=== PATIENT | male | born 1985 | race Caucasian/White ===

== ENCOUNTER 2024-01-09 21:42 | Inpatient (IN) | payer MEDICAID, OTHER ==
[~2024-01-09] VITALS: Ht 182.9 cm; Wt 112.5 kg
[2024-01-09 23:07] LABS: Eosinophils # (auto) 0.1 10 ^3/uL (0-0.8); Eosinophils % (auto) 0.6 % (0.0-7.0); Lymphocytes # (auto) 1.5 10 ^3/uL (0.4-5.4)
[2024-01-09 23:09] LABS: Basophils # (auto) 0.1 10 ^3/uL (0-0.2); Basophils % (auto) 0.5 % (0.0-2.0); Hematocrit 35.3 % (41.0-53.0); Hemoglobin 11.3 g/dL (13.5-17.5); Lymphocytes % (auto) 12.4 % (10.0-50.0); Mean Corpuscular Hemoglobin 24.1 pg (28.0-32.0); Mean Corpuscular Hgb Conc. 31.9 g/dL (32.0-36.0); Mean Corpuscular Volume 75.7 fL (80.0-100.0); Monocytes # (auto) 1.4 10 ^3/uL (0-1.3); Monocytes % (auto) 11.9 % (0.0-12.0); Neutrophils % (auto) 74.6 % (37.0-80.0); Red Blood Cells 4.67 10^6/uL (4.5-5.90); Red Cell Distribution Width 16.4 % (11.8-14.3)
[2024-01-09 23:29] LABS: Alanine Aminotransferase 22 U/L (7-40); Albumin 3.7 g/dL (3.2-4.8); Alkaline Phosphatase 143 U/L (46-116); Anion Gap 2 (5-15); Aspartate Aminotransferase 16 U/L (13-40); BUN/Creatinine Ratio 6.8 (10.0-20.0); Bilirubin, Total 0.5 mg/dL (0.2-1.0); Blood Urea Nitrogen 6 mg/dL (9-23); Calcium 9.5 mg/dL (8.7-10.4); Carbon Dioxide 29 mmol/L (20-30); Chloride 100 mmol/L (98-107); Glucose 98 mg/dL (74-106); Potassium 3.9 mmol/L (3.5-5.1); Sodium 131 mmol/L (136-145); Total Protein 9.1 g/dL (5.7-8.2)
[2024-01-10 00:07] LABS: Erythrocyte Sedimentation Rate 91 mm/hr (0-20)
[2024-01-10] MEDS: CLINDAMYCIN 900MG IV 50 ML IV ONE (04:11)
[2024-01-10] MEDS: VANCOMYCIN 1GM/200ML 200 ML IV ONE (05:09)
[2024-01-10] MEDS ORDERED: DOCUSATE SOD 100 MG CAP PO PRN (05:30)
[2024-01-10] MEDS ORDERED: VANCOMYCIN PER PHARMACY 0 MG IV SCH (05:30)
[2024-01-10] MEDS: SODIUM CHLORIDE 0.9% 1,000 ML IV SCH (05:56)
[2024-01-10] MEDS ORDERED: MORPHINE SULFATE INJ 2 MG/ml SYRG IV PRN (06:30)
[2024-01-10] MEDS ORDERED: NITROGLYCERIN 0.4 MG SL TAB SL PRN (06:30)
[2024-01-10 06:46] LABS: Alanine Aminotransferase 18 U/L (7-40); Albumin 3.6 g/dL (3.2-4.8); Alkaline Phosphatase 135 U/L (46-116); Anion Gap 7 (5-15); Aspartate Aminotransferase 14 U/L (13-40); BUN/Creatinine Ratio 8.8 (10.0-20.0); Bilirubin, Total 0.5 mg/dL (0.2-1.0); Blood Urea Nitrogen 8 mg/dL (9-23); Calcium 9.2 mg/dL (8.7-10.4); Carbon Dioxide 26 mmol/L (20-30); Chloride 99 mmol/L (98-107); Glucose 90 mg/dL (74-106); Potassium 3.8 mmol/L (3.5-5.1); Sodium 132 mmol/L (136-145)
[2024-01-10 06:47] LABS: Total Protein 8.6 g/dL (5.7-8.2)
[2024-01-10 06:48] LABS: Basophils # (auto) 0.1 10 ^3/uL (0-0.2); Eosinophils # (auto) 0.2 10 ^3/uL (0-0.8); Hematocrit 32.2 % (41.0-53.0); Lymphocytes # (auto) 1.7 10 ^3/uL (0.4-5.4); Monocytes # (auto) 1.3 10 ^3/uL (0-1.3)
[2024-01-10 06:50] LABS: Basophils % (auto) 0.6 % (0.0-2.0); Eosinophils % (auto) 1.5 % (0.0-7.0); Hemoglobin 10.5 g/dL (13.5-17.5); Mean Corpuscular Hemoglobin 24.1 pg (28.0-32.0); Mean Corpuscular Hgb Conc. 32.4 g/dL (32.0-36.0); Mean Corpuscular Volume 74.2 fL (80.0-100.0); Monocytes % (auto) 12.8 % (0.0-12.0); Neutrophils # (auto) 6.9 10 ^3/uL (1.6-8.6); Neutrophils % (auto) 68.1 % (37.0-80.0); Red Blood Cells 4.35 10^6/uL (4.5-5.90); Red Cell Distribution Width 16.8 % (11.8-14.3); White Blood Cell 10.1 10^3/uL (4.4-10.8)
[2024-01-10] MEDS: levoFLOXacin 750MG 150 ML IV ONE (07:12)
[2024-01-10] MEDS: ENOXAPARIN SOD 40 MG/0.4 ML SYRINGE SC SCH (11:27)
[2024-01-10] MEDS: VANCOMYCIN 1GM/200ML 200 ML IV SCH (14:17)
[2024-01-10 17:00] VITALS: BP_SYST 108; BP_DIAS 59; BP_DIAS 89; PULSE 81; RESP 16; RESP 20; TEMP 98; TEMP 98.4; O2SAT 95; O2SAT 97
[2024-01-10 20:00] VITALS: BP 112/53; PULSE 89; RESP 18; TEMP 98.9
[2024-01-10 20:06] VITALS: BP 112/53; PULSE 89; RESP 18; TEMP 98.9; O2SAT 95
[2024-01-10] MEDS: IBUPROFEN 600 MG TAB PO PRN (21:50)
[2024-01-10] MEDS: CLINDAMYCIN 600MG IV 50 ML IV SCH (23:52)
[2024-01-11 04:18] LABS: Basophils # (auto) 0.1 10 ^3/uL (0-0.2); Eosinophils # (auto) 0.2 10 ^3/uL (0-0.8); Lymphocytes # (auto) 1.9 10 ^3/uL (0.4-5.4); Lymphocytes % (auto) 23.6 % (10.0-50.0); Neutrophils # (auto) 4.8 10 ^3/uL (1.6-8.6)
[2024-01-11 04:19] LABS: Basophils % (auto) 1.1 % (0.0-2.0); Eosinophils % (auto) 2.5 % (0.0-7.0); Hematocrit 30.1 % (41.0-53.0); Hemoglobin 9.7 g/dL (13.5-17.5); Mean Corpuscular Hemoglobin 24.2 pg (28.0-32.0); Mean Corpuscular Hgb Conc. 32.2 g/dL (32.0-36.0); Mean Corpuscular Volume 75.1 fL (80.0-100.0); Monocytes # (auto) 1.2 10 ^3/uL (0-1.3); Monocytes % (auto) 14.6 % (0.0-12.0); Neutrophils % (auto) 58.2 % (37.0-80.0); Red Blood Cells 4.01 10^6/uL (4.5-5.90); Red Cell Distribution Width 16.7 % (11.8-14.3); White Blood Cell 8.2 10^3/uL (4.4-10.8)
[2024-01-11 04:38] LABS: Alanine Aminotransferase 16 U/L (7-40); Albumin 3.2 g/dL (3.2-4.8); Alkaline Phosphatase 138 U/L (46-116); Anion Gap 3 (5-15); Aspartate Aminotransferase 15 U/L (13-40); BUN/Creatinine Ratio 8.1 (10.0-20.0); Bilirubin, Total 0.3 mg/dL (0.2-1.0); Blood Urea Nitrogen 7 mg/dL (9-23); Calcium 8.7 mg/dL (8.7-10.4); Carbon Dioxide 27 mmol/L (20-30); Chloride 105 mmol/L (98-107); Glucose 85 mg/dL (74-106); Potassium 3.7 mmol/L (3.5-5.1); Sodium 135 mmol/L (136-145); Total Protein 7.7 g/dL (5.7-8.2)
[2024-01-11 05:00] VITALS: BP 114/60; PULSE 75; RESP 16; TEMP 97.1; O2SAT 99
[2024-01-11 07:49] LABS: Amphetamine Screen, Urine Pos (NEGATIVE); Barbiturate Scree,Urine Neg (NEGATIVE); Benzodiazephine Screen, Urine Neg (NEGATIVE); Cannabinoid Screen, Urine Pos (NEGATIVE); Cocaine Screen, Urine Neg (NEGATIVE); Opiate Scree,Urine Neg (NEGATIVE); Phencyclidine Screen, Urine Neg (NEGATIVE)
[2024-01-11 07:54] LABS: Urine Bacteria FEW /hpf (None Seen); Urine Blood Negative /uL (Negative); Urine Clarity Clear (Clear); Urine Color Light-Yellow (Yellow); Urine Mucus FEW (None Seen); Urine Protein, UAD Negative (Negative); Urine Specific Gravity 1.016 (1.001-1.035); Urine Urobilinogen Normal (Negative); Urine WBC <1 /hpf (0 - 3); Urine pH 5.5 (5.0-9.0)
[2024-01-11] MEDS: ONDANSETRON HCL 4 MG/2 ML VIAL IV PRN (08:51)
[2024-01-11 09:29] VITALS: BP 131/67; PULSE 92; RESP 17; TEMP 98.6; O2SAT 98
[2024-01-11] MEDS: ALPRAZolam 0.5 MG TAB PO SCH (12:48)
[2024-01-11 13:24] VITALS: BP 124/72; PULSE 90; RESP 18; TEMP 98.5; O2SAT 95
[2024-01-11] MEDS: cefTRIAXone 2GM/50ML D5W 50 ML IV SCH (17:17)
[2024-01-11] MEDS: HYDROmorphone HCL 2 MG TAB PO PRN (17:23)
[2024-01-11 18:04] VITALS: BP 121/65; PULSE 103; RESP 17; TEMP 98.4; O2SAT 97
[2024-01-11 20:00] VITALS: BP 118/60; PULSE 84; RESP 17; RESP 18; TEMP 98.4; O2SAT 98
[2024-01-11 21:00] VITALS: BP 121/67; PULSE 101; RESP 17; TEMP 98; O2SAT 100
[2024-01-11] MEDS: ATORVASTATIN 20 MG TAB PO SCH (22:27)
[2024-01-12] VITALS (7 sets, daily range): BP systolic 114–158; BP diastolic 56–86; PULSE 82–97; RESP 17–19; TEMP 97.9–99; O2SAT 96–100
[2024-01-12 07:19] LABS: Basophils % (auto) 0.6 % (0.0-2.0); Eosinophils # (auto) 0.1 10 ^3/uL (0-0.8); Eosinophils % (auto) 0.8 % (0.0-7.0); Hemoglobin 11.4 g/dL (13.5-17.5); Lymphocytes # (auto) 1.3 10 ^3/uL (0.4-5.4); Lymphocytes % (auto) 15.4 % (10.0-50.0); Monocytes # (auto) 0.8 10 ^3/uL (0-1.3); Nucleated Red Blood Cells % 0.1 %
[2024-01-12 07:20] LABS: Basophils # (auto) 0 10 ^3/uL (0-0.2); Hematocrit 35.4 % (41.0-53.0); Mean Corpuscular Hgb Conc. 32.3 g/dL (32.0-36.0); Mean Corpuscular Volume 74.4 fL (80.0-100.0); Monocytes % (auto) 9.1 % (0.0-12.0); Neutrophils # (auto) 6.4 10 ^3/uL (1.6-8.6); Neutrophils % (auto) 74.1 % (37.0-80.0); Red Blood Cells 4.76 10^6/uL (4.5-5.90); Red Cell Distribution Width 16.5 % (11.8-14.3); White Blood Cell 8.6 10^3/uL (4.4-10.8)
[2024-01-12 07:33] LABS: Chloride 106 mmol/L (98-107); Potassium 3.7 mmol/L (3.5-5.1); Sodium 136 mmol/L (136-145)
[2024-01-12 07:34] LABS: Anion Gap 7 (5-15); Carbon Dioxide 23 mmol/L (20-30)
[2024-01-12 07:35] LABS: Calcium 8.9 mg/dL (8.7-10.4)
[2024-01-12 07:39] LABS: Glucose 89 mg/dL (74-106)
[2024-01-12 07:40] LABS: BUN/Creatinine Ratio 6.6 (10.0-20.0); Blood Urea Nitrogen < 5 mg/dL (9-23)
[2024-01-12] MEDS: ASPirin 81 mg TAB PO SCH (10:42)
[2024-01-13] VITALS (7 sets, daily range): BP systolic 133–175; BP diastolic 63–86; PULSE 67–102; RESP 18–20; TEMP 98–99.3; O2SAT 93–100
[2024-01-13] MEDS: SACUBITRIL-VALSARTAN 24mg/26mg TAB PO SCH (21:28)
[2024-01-13] MEDS: METOPROLOL TARTRATE 25 MG TAB PO SCH (21:29)
[2024-01-14] VITALS (8 sets, daily range): BP systolic 105–150; BP diastolic 61–90; PULSE 75–94; RESP 16–20; TEMP 97.8–98.5; O2SAT 94–100
[2024-01-14] MEDS: SPIRONOLACTONE 25 MG TAB PO SCH (10:42)
[2024-01-14] MEDS: EMPAGLIFLOZIN 10 MG TAB PO SCH (10:42)
[2024-01-14 11:09] LABS: Basophils # (auto) 0.1 10 ^3/uL (0-0.2); Basophils % (auto) 0.7 % (0.0-2.0); Eosinophils # (auto) 0 10 ^3/uL (0-0.8); Hemoglobin 12.7 g/dL (13.5-17.5); Monocytes # (auto) 0.7 10 ^3/uL (0-1.3)
[2024-01-14 11:13] LABS: Eosinophils % (auto) 0.2 % (0.0-7.0); Lymphocytes # (auto) 1.7 10 ^3/uL (0.4-5.4); Lymphocytes % (auto) 18.7 % (10.0-50.0); Mean Corpuscular Hemoglobin 24.7 pg (28.0-32.0); Mean Corpuscular Hgb Conc. 32.6 g/dL (32.0-36.0); Mean Corpuscular Volume 75.6 fL (80.0-100.0); Monocytes % (auto) 7.3 % (0.0-12.0); Neutrophils # (auto) 6.7 10 ^3/uL (1.6-8.6); Neutrophils % (auto) 73.1 % (37.0-80.0); Red Blood Cells 5.16 10^6/uL (4.5-5.90); Red Cell Distribution Width 16.5 % (11.8-14.3); White Blood Cell 9.1 10^3/uL (4.4-10.8)
[2024-01-14 11:30] LABS: Alanine Aminotransferase 16 U/L (7-40); Anion Gap 12 (5-15); Carbon Dioxide 19 mmol/L (20-30); Chloride 108 mmol/L (98-107); Potassium 3.8 mmol/L (3.5-5.1); Sodium 139 mmol/L (136-145)
[2024-01-14 11:31] LABS: Aspartate Aminotransferase 20 U/L (13-40); BUN/Creatinine Ratio 10.4 (10.0-20.0); Blood Urea Nitrogen 8 mg/dL (9-23); Glucose 88 mg/dL (74-106)
[2024-01-15] VITALS (8 sets, daily range): BP systolic 118–137; BP diastolic 71–86; PULSE 73–91; RESP 18–20; TEMP 97.4–98.5; O2SAT 94–99
[2024-01-15 10:23] LABS: Chloride 109 mmol/L (98-107); Potassium 3.6 mmol/L (3.5-5.1); Sodium 140 mmol/L (136-145)
[2024-01-15 10:24] LABS: Anion Gap 11 (5-15); Carbon Dioxide 20 mmol/L (20-30)
[2024-01-15 10:25] LABS: Calcium 8.7 mg/dL (8.5-10.1)
[2024-01-15 10:29] LABS: BUN/Creatinine Ratio 9.9 (10.0-20.0); Blood Urea Nitrogen 9 mg/dL (9-23); Glucose 102 mg/dL (74-106)
[2024-01-15 12:43] LABS: Basophils # (auto) 0.1 10 ^3/uL (0-0.2); Basophils % (auto) 0.7 % (0.0-2.0); Eosinophils # (auto) 0 10 ^3/uL (0-0.8); Eosinophils % (auto) 0.5 % (0.0-7.0); Hematocrit 42.4 % (41.0-53.0); Hemoglobin 13.5 g/dL (13.5-17.5); Lymphocytes # (auto) 2.2 10 ^3/uL (0.4-5.4); Lymphocytes % (auto) 23.1 % (10.0-50.0); Mean Corpuscular Hgb Conc. 31.8 g/dL (32.0-36.0); Mean Corpuscular Volume 75.4 fL (80.0-100.0); Monocytes # (auto) 0.8 10 ^3/uL (0-1.3); Monocytes % (auto) 8.5 % (0.0-12.0); Neutrophils # (auto) 6.3 10 ^3/uL (1.6-8.6); Neutrophils % (auto) 67.2 % (37.0-80.0); Nucleated Red Blood Cells % 0.2 %; Red Blood Cells 5.62 10^6/uL (4.5-5.90); Red Cell Distribution Width 16.8 % (11.8-14.3); White Blood Cell 9.3 10^3/uL (4.4-10.8)
[2024-01-16] MEDS: DAKINS QUARTER STR 0.125% (NaHypochlorite) 473 ML TOPICAL SOL TOP SCH (10:00)
== END 2024-01-16 17:09 | disposition left against medical advice (07) | DRG 344 ==
LOC: EDBD 21:42 → EDUNIT# 21:42 → ER 21:42 → OVERFLOW 01-10 06:24 → WEST WING 01-10 16:08
PROVIDERS: ADMIT Nurse Practitioner Family; ATTEND Family Medicine
DX: M86.172 Other acute osteomyelitis, left ankle and foot (principal); I50.21 Acute systolic (congestive) heart failure; L03.116 Cellulitis of left lower limb; E87.1 Hypo-osmolality and hyponatremia; L97.529 Non-pressure chronic ulcer of other part of left foot with unspecified severity; Z53.29 Procedure and treatment not carried out because of patient's decision for other reasons; F17.210 Nicotine dependence, cigarettes, uncomplicated; I70.202 Unspecified atherosclerosis of native arteries of extremities, left leg; D75.839 Thrombocytosis, unspecified; F15.90 Other stimulant use, unspecified, uncomplicated; F12.90 Cannabis use, unspecified, uncomplicated; Z91.199 Patient's noncompliance with other medical treatment and regimen due to unspecified reason; Z88.5 Allergy status to narcotic agent; Z88.8 Allergy status to other drugs, medicaments and biological substances; Z91.018 Allergy to other foods
CPT/HCPCS: 36415; 71045; 71275; 73630; 73718; 80048; 80053; 80202; 80307; 80320; 81001; 82565; 82962; 83036; 83605; 83735; 83880; 84443; 84450; 84460; 84484; 85025; 85379; 85652; 87040; 93005; 93306; 93925; 93971; G0378; J1956; J2405; J3490

== ENCOUNTER 2024-02-20 14:35 | Inpatient (IN) | payer MEDICAID ==
[~2024-02-20] VITALS: Ht 195.6 cm; Wt 105.5 kg
[2024-02-20 15:13] LABS: Basophils # (auto) 0 10 ^3/uL (0-0.2); Basophils % (auto) 0.3 % (0.0-2.0); Eosinophils # (auto) 0 10 ^3/uL (0-0.8); Eosinophils % (auto) 0.4 % (0.0-7.0); Hematocrit 32.6 % (41.0-53.0); Hemoglobin 10.5 g/dL (13.5-17.5); Lymphocytes # (auto) 1.8 10 ^3/uL (0.4-5.4); Lymphocytes % (auto) 17.3 % (10.0-50.0); Mean Corpuscular Hemoglobin 23.7 pg (28.0-32.0); Mean Corpuscular Hgb Conc. 32.1 g/dL (32.0-36.0); Mean Corpuscular Volume 73.7 fL (80.0-100.0); Monocytes # (auto) 1.1 10 ^3/uL (0-1.3); Neutrophils # (auto) 7.7 10 ^3/uL (1.6-8.6); Nucleated Red Blood Cells % 0.1 %; Red Blood Cells 4.43 10^6/uL (4.5-5.90); Red Cell Distribution Width 18.2 % (11.8-14.3); White Blood Cell 10.7 10^3/uL (4.4-10.8)
[2024-02-20 15:15] VITALS: PULSE 90; RESP 12; O2SAT 94
[2024-02-20 15:46] LABS: Alanine Aminotransferase 15 U/L (7-40); Albumin 3.5 g/dL (3.2-4.8); Alkaline Phosphatase 106 U/L (46-116); Anion Gap 4 (5-15); Aspartate Aminotransferase 18 U/L (13-40); BUN/Creatinine Ratio 6.9 (10.0-20.0); Blood Urea Nitrogen 6 mg/dL (9-23); Carbon Dioxide 29 mmol/L (20-30); Chloride 101 mmol/L (98-107); Glucose 98 mg/dL (74-106); Potassium 3.5 mmol/L (3.5-5.1); Sodium 134 mmol/L (136-145)
[2024-02-20 15:47] LABS: Bilirubin, Total 0.2 mg/dL (0.2-1.0)
[2024-02-20] MEDS ORDERED: ACETAMINOPHEN 325 MG TAB PO PRN (17:15)
[2024-02-20 17:30] LABS: CRP High Sensitivity 16.02 mg/dL (<1.0)
[2024-02-20 17:39] LABS: % Iron Saturation 6.8 % (20-55)
[2024-02-20] MEDS: cefTRIAXone 1GM/50ML D5W 50 ML IV ONE (17:42)
[2024-02-20] MEDS: CLINDAMYCIN 600MG IV 50 ML IV ONE (18:00)
[2024-02-20 18:41] LABS: Erythrocyte Sedimentation Rate 92 mm/hr (0-20)
[2024-02-20] MEDS: PIPERACILLIN-TAZOB 3.375GM 100 ML IV SCH (18:57)
[2024-02-20 19:30] VITALS: PULSE 83; RESP 14; O2SAT 98
[2024-02-20] MEDS: HYDROcodone-ACET 5/325MG TAB PO PRN (20:14)
[2024-02-20] MEDS: SODIUM CHLOR 0.9% PF (SALINE LOCK) 10ML VIAL/SYR IV SCH (21:53)
[2024-02-20 23:08] VITALS: BP 118/63; PULSE 82; RESP 18; TEMP 98.4; O2SAT 96
[2024-02-21] VITALS (7 sets, daily range): BP systolic 108–135; BP diastolic 51–78; PULSE 73–79; RESP 16–20; TEMP 97.9–98.8; O2SAT 92–99
[2024-02-21] MEDS: ENOXAPARIN SOD 40 MG/0.4 ML SYRINGE SC SCH (10:28)
[2024-02-21] MEDS ORDERED: VANCOMYCIN PER PHARMACY 0 MG IV SCH (10:45)
[2024-02-21] MEDS: cefTRIAXone 1GM/50ML D5W 50 ML IV ONE (11:54)
[2024-02-21] MEDS: VANCOMYCIN 1GM/200ML 200 ML IV ONE (11:55)
[2024-02-21] MEDS: VANCOMYCIN 1GM/200ML 200 ML IV SCH (17:56)
[2024-02-22] VITALS (7 sets, daily range): BP systolic 114–143; BP diastolic 62–77; PULSE 75–84; RESP 17–18; TEMP 97.8–98.6; O2SAT 94–100
[2024-02-22] MEDS: cefTRIAXone 1GM/50ML D5W 50 ML IV SCH (08:56)
[2024-02-22 08:57] LABS: Basophils # (auto) 0.1 10 ^3/uL (0-0.2); Basophils % (auto) 0.6 % (0.0-2.0); Eosinophils # (auto) 0 10 ^3/uL (0-0.8); Eosinophils % (auto) 0.5 % (0.0-7.0); Hemoglobin 9.8 g/dL (13.5-17.5); Lymphocytes # (auto) 1.2 10 ^3/uL (0.4-5.4); Lymphocytes % (auto) 13.2 % (10.0-50.0); Mean Corpuscular Hemoglobin 23.5 pg (28.0-32.0); Mean Corpuscular Hgb Conc. 32.5 g/dL (32.0-36.0); Mean Corpuscular Volume 72.4 fL (80.0-100.0); Monocytes # (auto) 0.8 10 ^3/uL (0-1.3); Monocytes % (auto) 8.9 % (0.0-12.0); Neutrophils # (auto) 6.8 10 ^3/uL (1.6-8.6); Neutrophils % (auto) 76.8 % (37.0-80.0); Red Blood Cells 4.15 10^6/uL (4.5-5.90); Red Cell Distribution Width 18.4 % (11.8-14.3); White Blood Cell 8.9 10^3/uL (4.4-10.8)
[2024-02-22 09:34] LABS: Erythrocyte Sedimentation Rate 99 mm/hr (0-20)
[2024-02-22] MEDS: VANCOMYCIN 1GM/200ML 200 ML IV SCH (13:00)
[2024-02-22] MEDS: ONDANSETRON HCL 4 MG/2 ML VIAL IV PRN (20:52)
[2024-02-23] VITALS (8 sets, daily range): BP systolic 116–142; BP diastolic 49–80; PULSE 75–94; RESP 16–18; TEMP 97.6–98.4; O2SAT 92–100
[2024-02-23 20:26] LABS: Basophils # (auto) 0 10 ^3/uL (0-0.2); Eosinophils # (auto) 0 10 ^3/uL (0-0.8); Hemoglobin 12.6 g/dL (13.5-17.5); Neutrophils # (auto) 13.3 10 ^3/uL (1.6-8.6)
[2024-02-23 20:27] LABS: Basophils % (auto) 0.1 % (0.0-2.0); Hematocrit 39.3 % (41.0-53.0); Lymphocytes # (auto) 1.7 10 ^3/uL (0.4-5.4); Lymphocytes % (auto) 10.4 % (10.0-50.0); Mean Corpuscular Hemoglobin 23.3 pg (28.0-32.0); Mean Corpuscular Volume 73.1 fL (80.0-100.0); Monocytes # (auto) 0.9 10 ^3/uL (0-1.3); Monocytes % (auto) 5.6 % (0.0-12.0); Neutrophils % (auto) 83.9 % (37.0-80.0); Red Blood Cells 5.39 10^6/uL (4.5-5.90); Red Cell Distribution Width 18.9 % (11.8-14.3); White Blood Cell 15.9 10^3/uL (4.4-10.8)
[2024-02-23 20:44] LABS: Alanine Aminotransferase 21 U/L (7-40); Albumin 3.5 g/dL (3.2-4.8); Alkaline Phosphatase 101 U/L (46-116); Anion Gap 10 (5-15); Aspartate Aminotransferase 27 U/L (13-40); Bilirubin, Total 0.3 mg/dL (0.2-1.0); Blood Urea Nitrogen 5 mg/dL (9-23); Calcium 8.7 mg/dL (8.5-10.1); Carbon Dioxide 24 mmol/L (20-30); Chloride 101 mmol/L (98-107); Glucose 94 mg/dL (74-106); Potassium 3.4 mmol/L (3.5-5.1); Sodium 135 mmol/L (136-145); Total Protein 7.9 g/dL (5.7-8.2)
[2024-02-23 22:49] LABS: Urine Bacteria None Seen /hpf (None Seen); Urine WBC None Seen /hpf (0 - 3)
[2024-02-23 22:56] LABS: Urine Blood Negative /uL (Negative); Urine Clarity Clear (Clear); Urine Color Light-Yellow (Yellow); Urine Protein, UAD 1+ (Negative); Urine Specific Gravity 1.025 (1.001-1.035); Urine Urobilinogen Normal (Negative)
[2024-02-23 23:08] LABS: Amphetamine Screen, Urine Pos (NEGATIVE); Barbiturate Scree,Urine Neg (NEGATIVE); Benzodiazephine Screen, Urine Neg (NEGATIVE); Cocaine Screen, Urine Neg (NEGATIVE); Opiate Scree,Urine Neg (NEGATIVE)
[2024-02-23 23:09] LABS: Cannabinoid Screen, Urine Pos (NEGATIVE); Phencyclidine Screen, Urine Neg (NEGATIVE)
[2024-02-24] VITALS (7 sets, daily range): BP systolic 118–134; BP diastolic 70–76; PULSE 64–110; RESP 16–20; TEMP 97.8–99.1; O2SAT 95–99
[2024-02-24 06:58] LABS: INR 1.26 (0.9-1.15); Partial Thromboplastin Time 31.9 SEC (24.5-34.5); Prothrombin Time 13.1 sec (9.3-11.8)
[2024-02-24] MEDS: DAKINS HALF STR 0.25% (NaHypochlorite) 473 ML TOPICAL SOL TOP ONE (08:15)
[2024-02-24] MEDS ORDERED: PROPOFOL 10 MG/ML 20 ML IV ONE (11:03)
[2024-02-24] MEDS ORDERED: fentaNYL CITRATE 100 MCG/2 ML VL ONE ×2 (11:03→13:35)
[2024-02-24] MEDS: BUPIVACAINE HCL 50 ML ONE (11:04)
[2024-02-24] MEDS: LIDOCAINE 1% HCL (LOCAL ANESTH.) INJ 20ML MDV ONE (11:04)
[2024-02-24] MEDS ORDERED: MEPERIDINE HCL (25 MG/ML) 1ML VIAL ONE (11:39)
[2024-02-24] MEDS ORDERED: fentaNYL CITRATE 5 ML ONE (11:45)
[2024-02-24] MEDS ORDERED: HYDROmorphone HCL 2 MG/ML VL/or syr IV PRN (13:30)
[2024-02-24] MEDS ORDERED: MEPERIDINE HCL (25 MG/ML) 1ML VIAL IV PRN (13:30)
[2024-02-24] MEDS: ONDANSETRON HCL 4 MG/2 ML VIAL IV ONE (13:30)
[2024-02-24] MEDS: HYDROmorphone HCL 2 MG/ML VL/or syr ONE (13:34)
[2024-02-24] MEDS: HYDROmorphone HCL 2 MG/ML VL/or syr IV ONE ×2 (13:35→13:59)
[2024-02-24] MEDS ORDERED: MIDAZOLAM HCL 2MG/2ML 2ml VIAL (1mg/ml) ONE (13:35)
[2024-02-24] MEDS ORDERED: HYDROmorphone HCL 2 MG/ML VL/or syr IM ONE (13:45)
[2024-02-24] MEDS ORDERED: KETAMINE 50mg/ML 10ml Vial 10 ML ONE (13:45)
[2024-02-24] MEDS: VANCOMYCIN 1GM/200ML 200 ML IV SCH (17:11)
[2024-02-24] MEDS: NICOTINE 21MG/24 HR TOPICAL PATCH TD SCH (17:11)
[2024-02-25 05:00] VITALS: BP 117/71; PULSE 84; RESP 16; TEMP 97.9; O2SAT 98
[2024-02-25] MEDS: MORPHINE SULFATE INJ 2 MG/ml SYRG IV PRN (06:59)
[2024-02-25 07:01] LABS: Basophils # (auto) 0.1 10 ^3/uL (0-0.2); Eosinophils # (auto) 0 10 ^3/uL (0-0.8); Hemoglobin 10.1 g/dL (13.5-17.5); Lymphocytes # (auto) 2.3 10 ^3/uL (0.4-5.4); Neutrophils % (auto) 66.1 % (37.0-80.0); Red Cell Distribution Width 18.4 % (11.8-14.3)
[2024-02-25 07:04] LABS: Basophils % (auto) 0.8 % (0.0-2.0); Eosinophils % (auto) 0.3 % (0.0-7.0); Hematocrit 31.5 % (41.0-53.0); Lymphocytes % (auto) 22.9 % (10.0-50.0); Mean Corpuscular Hemoglobin 23.4 pg (28.0-32.0); Mean Corpuscular Hgb Conc. 32.1 g/dL (32.0-36.0); Mean Corpuscular Volume 72.9 fL (80.0-100.0); Monocytes % (auto) 9.9 % (0.0-12.0); Neutrophils # (auto) 6.7 10 ^3/uL (1.6-8.6); Red Blood Cells 4.32 10^6/uL (4.5-5.90); White Blood Cell 10.1 10^3/uL (4.4-10.8)
[2024-02-25 07:14] LABS: Anion Gap 3 (5-15); Carbon Dioxide 26 mmol/L (20-30); Chloride 107 mmol/L (98-107); Potassium 3.8 mmol/L (3.5-5.1); Sodium 136 mmol/L (136-145)
[2024-02-25 07:16] LABS: Calcium 7.9 mg/dL (8.5-10.1)
[2024-02-25 07:20] LABS: Glucose 96 mg/dL (74-106)
[2024-02-25 07:21] LABS: BUN/Creatinine Ratio 10.4 (10.0-20.0); Blood Urea Nitrogen 7 mg/dL (9-23); Magnesium 1.9 mg/dL (1.6-2.6)
[2024-02-25 08:00] VITALS: O2SAT 96
[2024-02-25 09:00] VITALS: BP 139/82; PULSE 87; RESP 16; TEMP 98.1; O2SAT 97
[2024-02-25] MEDS: MUPIROCIN 2% OINT 15gm or 22gm FOR MRSA NARES EACHNOSTRI SCH (10:00)
[2024-02-25 14:20] VITALS: BP 120/80; PULSE 71; RESP 17; TEMP 98.3; O2SAT 97
[2024-02-25 17:00] VITALS: BP 116/74; PULSE 75; RESP 17; TEMP 98.3; O2SAT 98
[2024-02-25 21:00] VITALS: BP 127/82; PULSE 81; RESP 18; TEMP 97.8; O2SAT 100
[2024-02-26 05:00] VITALS: BP 126/62; PULSE 74; RESP 16; TEMP 98.5; O2SAT 97
[2024-02-26 07:01] LABS: Calcium 8.6 mg/dL (8.7-10.4); Chloride 105 mmol/L (98-107); Sodium 136 mmol/L (136-145)
[2024-02-26 07:02] LABS: Anion Gap 5 (5-15); Carbon Dioxide 26 mmol/L (20-30)
[2024-02-26 07:07] LABS: Albumin 3.2 g/dL (3.2-4.8); GFR African American 154 mL/min; GFR Non-African American 127 mL/min; Glucose 93 mg/dL (74-106)
[2024-02-26 07:09] LABS: Creatine Kinase IFCC 18 U/L (46-171); Phosphorus 2.9 mg/dL (2.4-5.1)
[2024-02-26 07:12] LABS: BUN/Creatinine Ratio 6.8 (10.0-20.0); Blood Urea Nitrogen < 5 mg/dL (9-23)
[2024-02-26 09:00] VITALS: BP 124/66; PULSE 80; RESP 16; TEMP 97.9; O2SAT 99
[2024-02-26 13:00] VITALS: BP 128/75; PULSE 73; RESP 16; TEMP 98.6; O2SAT 98
[2024-02-26] MEDS: VANCOMYCIN 1GM/200ML 200 ML IV SCH (13:24)
[2024-02-26] MEDS: ALPRAZolam 0.5 MG TAB PO PRN (13:29)
[2024-02-26] MEDS: MORPHINE SULFATE 4 MG/ML SYR/VIAL IV PRN (15:48)
[2024-02-26 17:00] VITALS: BP 120/85; PULSE 100; RESP 17; TEMP 98.1; O2SAT 100
[2024-02-26 21:00] VITALS: BP 133/77; PULSE 91; RESP 18; TEMP 98; O2SAT 97
[2024-02-27 05:00] VITALS: BP 122/78; PULSE 85; RESP 17; TEMP 98.7; O2SAT 100
[2024-02-27 09:00] VITALS: BP 133/69; PULSE 78; RESP 18; TEMP 98.6; O2SAT 100
[2024-02-27] MEDS: HYDROcodone-ACET 10/325MG TAB PO PRN (12:08)
[2024-02-27 12:53] VITALS: BP 129/79; PULSE 97; RESP 20; TEMP 98.6; O2SAT 100
[2024-02-27 17:00] VITALS: BP 129/72; PULSE 93; RESP 18; TEMP 98.7; O2SAT 97
[2024-02-27 21:00] VITALS: BP 134/74; PULSE 78; RESP 18; TEMP 98.9; O2SAT 98
[2024-02-28 01:00] VITALS: BP 124/75; PULSE 81; RESP 19; TEMP 98.1; O2SAT 97
[2024-02-28 05:00] VITALS: BP 110/75; PULSE 67; RESP 18; TEMP 98; O2SAT 99
[2024-02-28 09:00] VITALS: BP 129/75; PULSE 74; RESP 20; TEMP 98.6; O2SAT 100
[2024-02-28] MEDS: VANCOMYCIN 1GM/200ML 200 ML IV SCH (09:35)
[2024-02-28 13:00] VITALS: BP 131/80; PULSE 85; RESP 20; TEMP 97.9; O2SAT 98
[2024-02-28 17:00] VITALS: BP 133/81; PULSE 79; RESP 20; TEMP 97.4; O2SAT 100
[2024-02-28 21:00] VITALS: BP 130/92; PULSE 103; RESP 17; TEMP 99; O2SAT 97
[2024-02-29 01:00] VITALS: BP 134/80; PULSE 78; RESP 17; TEMP 97.9; O2SAT 97
[2024-02-29 08:45] LABS: Basophils # (auto) 0.1 10 ^3/uL (0-0.2); Eosinophils # (auto) 0.1 10 ^3/uL (0-0.8); Monocytes # (auto) 0.6 10 ^3/uL (0-1.3); Neutrophils # (auto) 5.9 10 ^3/uL (1.6-8.6)
[2024-02-29 08:47] LABS: Eosinophils % (auto) 1.4 % (0.0-7.0); Hematocrit 39.9 % (41.0-53.0); Hemoglobin 12.7 g/dL (13.5-17.5); Mean Corpuscular Hemoglobin 23.5 pg (28.0-32.0); Mean Corpuscular Hgb Conc. 31.8 g/dL (32.0-36.0); Mean Corpuscular Volume 73.9 fL (80.0-100.0); Monocytes % (auto) 6.5 % (0.0-12.0); Neutrophils % (auto) 68.1 % (37.0-80.0); Red Blood Cells 5.41 10^6/uL (4.5-5.90); Red Cell Distribution Width 19.9 % (11.8-14.3); White Blood Cell 8.6 10^3/uL (4.4-10.8)
[2024-02-29 09:00] VITALS: BP 139/81; PULSE 85; RESP 20; TEMP 98.2; O2SAT 100
[2024-02-29 13:00] VITALS: BP 116/72; PULSE 77; RESP 17; TEMP 98; O2SAT 98
[2024-02-29 16:52] VITALS: BP 121/77; PULSE 88; RESP 16; TEMP 98.3; O2SAT 97
[2024-02-29 18:07] LABS: INR 1.08 (0.9-1.15); Partial Thromboplastin Time 23.5 SEC (24.5-34.5); Prothrombin Time 11.4 sec (9.3-11.8)
[2024-02-29 21:00] VITALS: BP 119/78; PULSE 92; RESP 17; TEMP 98.7; O2SAT 97
[2024-02-29] MEDS: ZOLPIDEM TARTRATE 5 MG TAB PO PRN (23:47)
[2024-03-01 01:00] VITALS: BP 108/68; PULSE 84; RESP 17; TEMP 98; O2SAT 100
[2024-03-01 08:00] VITALS: PULSE 88; RESP 18; O2SAT 100
[2024-03-01 09:27] VITALS: BP 122/78; PULSE 88; RESP 18; TEMP 98; O2SAT 100
[2024-03-01 13:09] VITALS: BP 116/71; PULSE 99; RESP 17; TEMP 98.5; O2SAT 98
[2024-03-01] MEDS: LIDOCAINE 1% (LOCAL ANESTH.) PF 5ml SDV ID ONE (14:00)
[2024-03-01 16:41] VITALS: BP 116/66; PULSE 98; RESP 18; TEMP 98.2; O2SAT 98
[2024-03-01 21:00] VITALS: BP 117/60; PULSE 88; RESP 18; TEMP 97.8; O2SAT 96
[2024-03-01] MEDS: NAFCILLIN SOD 2GM 2 GM in SODIUM CHL 0.9% 100 ML IV SCH (21:05)
[2024-03-01] MEDS: SODIUM CHLOR 0.9% PF (SALINE LOCK) 10ML VIAL/SYR IV SCH (21:09)
[2024-03-02] VITALS (8 sets, daily range): BP systolic 108–132; BP diastolic 63–81; PULSE 89–119; RESP 17–18; TEMP 97.4–98; O2SAT 91–100
[2024-03-02 13:39] LABS: Basophils # (auto) 0.1 10 ^3/uL (0-0.2); Eosinophils # (auto) 0.1 10 ^3/uL (0-0.8); Eosinophils % (auto) 0.9 % (0.0-7.0); Lymphocytes # (auto) 1.8 10 ^3/uL (0.4-5.4); Mean Corpuscular Volume 74.5 fL (80.0-100.0); Monocytes # (auto) 0.9 10 ^3/uL (0-1.3); Neutrophils # (auto) 6.3 10 ^3/uL (1.6-8.6)
[2024-03-02 13:42] LABS: Basophils % (auto) 0.9 % (0.0-2.0); Hematocrit 39.1 % (41.0-53.0); Hemoglobin 12.4 g/dL (13.5-17.5); Lymphocytes % (auto) 19.5 % (10.0-50.0); Mean Corpuscular Hemoglobin 23.7 pg (28.0-32.0); Mean Corpuscular Hgb Conc. 31.8 g/dL (32.0-36.0); Neutrophils % (auto) 68.7 % (37.0-80.0); Red Blood Cells 5.25 10^6/uL (4.5-5.90); White Blood Cell 9.2 10^3/uL (4.4-10.8)
[2024-03-02 13:43] LABS: Red Cell Distribution Width 21.2 % (11.8-14.3)
[2024-03-02] MEDS ORDERED: MORPHINE SULFATE INJ 2 MG/ml SYRG IV PRN (14:00)
[2024-03-02] MEDS: MUPIROCIN 2% OINT 15gm or 22gm FOR MRSA NARES EACHNOSTRI SCH (22:03)
[2024-03-03] VITALS (8 sets, daily range): BP systolic 118–128; BP diastolic 50–82; PULSE 85–108; RESP 16–20; TEMP 97.7–98.3; O2SAT 97–98
[2024-03-04] VITALS (8 sets, daily range): BP systolic 106–123; BP diastolic 62–93; PULSE 80–98; RESP 16–20; TEMP 98–98.4; O2SAT 95–97
[2024-03-05] VITALS (8 sets, daily range): BP systolic 108–128; BP diastolic 68–82; PULSE 82–108; RESP 16–18; TEMP 98–99.1; O2SAT 96–100
[2024-03-05] MEDS: ZOLPIDEM TARTRATE 5 MG TAB PO PRN (22:44)
[2024-03-06 08:00] VITALS: BP 130/78; PULSE 91; RESP 20; TEMP 97.9; O2SAT 100
[2024-03-06 12:00] VITALS: BP 110/78; PULSE 93; RESP 20; TEMP 97.4; O2SAT 100
[2024-03-06 16:00] VITALS: BP 131/80; PULSE 89; RESP 20; TEMP 97.9; O2SAT 100
[2024-03-06 20:00] VITALS: PULSE 80; RESP 18; O2SAT 95
[2024-03-06 21:00] VITALS: BP 134/85; PULSE 87; RESP 18; TEMP 98.1; O2SAT 99
[2024-03-07 01:00] VITALS: BP 117/68; PULSE 95; RESP 20; TEMP 97.7; O2SAT 100
[2024-03-07 09:00] VITALS: BP 116/79; PULSE 77; RESP 18; TEMP 97.7; O2SAT 98
[2024-03-07 13:00] VITALS: BP 119/69; PULSE 84; RESP 16; TEMP 98.2; O2SAT 96
[2024-03-07 14:09] LABS: Basophils # (auto) 0.1 10 ^3/uL (0-0.2); Eosinophils # (auto) 0.1 10 ^3/uL (0-0.8); Eosinophils % (auto) 0.8 % (0.0-7.0); Hemoglobin 11.8 g/dL (13.5-17.5); Mean Corpuscular Volume 75.4 fL (80.0-100.0)
[2024-03-07 14:13] LABS: Basophils % (auto) 1.3 % (0.0-2.0); Hematocrit 36.3 % (41.0-53.0); Lymphocytes # (auto) 2.2 10 ^3/uL (0.4-5.4); Lymphocytes % (auto) 27.2 % (10.0-50.0); Mean Corpuscular Hemoglobin 24.5 pg (28.0-32.0); Mean Corpuscular Hgb Conc. 32.5 g/dL (32.0-36.0); Monocytes # (auto) 0.6 10 ^3/uL (0-1.3); Monocytes % (auto) 7.7 % (0.0-12.0); Neutrophils # (auto) 5.1 10 ^3/uL (1.6-8.6); Red Blood Cells 4.81 10^6/uL (4.5-5.90); White Blood Cell 8.1 10^3/uL (4.4-10.8)
[2024-03-07 14:17] LABS: Red Cell Distribution Width 23.4 % (11.8-14.3)
[2024-03-07 14:31] LABS: INR 1.07 (0.9-1.15); Prothrombin Time 11.3 sec (9.3-11.8)
[2024-03-07 17:00] VITALS: BP 137/76; PULSE 77; RESP 18; TEMP 97.7; O2SAT 98
[2024-03-07 20:00] VITALS: RESP 16
[2024-03-07 21:00] VITALS: BP 125/78; PULSE 89; RESP 18; TEMP 97.7; O2SAT 99
[2024-03-08 01:00] VITALS: BP 128/75; PULSE 81; RESP 16; TEMP 98.6; O2SAT 100
[2024-03-08 05:00] VITALS: BP 137/74; PULSE 81; RESP 20; TEMP 97.9; O2SAT 97
[2024-03-08 08:00] VITALS: PULSE 74; RESP 20
[2024-03-08 09:00] VITALS: BP 139/76; PULSE 78; RESP 20; TEMP 97.9; O2SAT 99
[2024-03-08] MEDS: LIDOCAINE 1% (LOCAL ANESTH.) PF 5ml SDV ID ONE (10:50)
[2024-03-08 13:00] VITALS: BP 132/70; PULSE 74; RESP 20; TEMP 98.8; O2SAT 95
[2024-03-08] MEDS ORDERED: SODIUM CHLOR 0.9% PF (SALINE LOCK) 10ML VIAL/SYR IV SCH (22:00)
== END 2024-03-08 14:39 | DRG 364 ==
LOC: ER 14:35 → OVERFLOW 17:12 → WEST WING 17:12
PROVIDERS: ADMIT Internal Medicine; ATTEND Internal Medicine
PROC: 02HV33Z Insertion of Infusion Device into Superior Vena Cava, Percutaneous Approach (ICD-10-PCS; principal; 2024-02-20)
PROC: 0Y6N0Z0 Detachment at Left Foot, Complete, Open Approach (ICD-10-PCS; 2024-02-24)
PROC: 2W1TX6Z Compression of Left Foot using Pressure Dressing (ICD-10-PCS; 2024-02-24)
PROC: 02HV33Z Insertion of Infusion Device into Superior Vena Cava, Percutaneous Approach (ICD-10-PCS; 2024-03-01)
PROC: B548ZZA Ultrasonography of Superior Vena Cava, Guidance (ICD-10-PCS; 2024-03-01)
PROC: 02HV33Z Insertion of Infusion Device into Superior Vena Cava, Percutaneous Approach (ICD-10-PCS; 2024-03-08)
PROC: B548ZZA Ultrasonography of Superior Vena Cava, Guidance (ICD-10-PCS; 2024-03-08)
DX: L02.416 Cutaneous abscess of left lower limb (principal); I50.9 Heart failure, unspecified; D63.8 Anemia in other chronic diseases classified elsewhere; M86.672 Other chronic osteomyelitis, left ankle and foot; D50.9 Iron deficiency anemia, unspecified; E66.3 Overweight; F17.210 Nicotine dependence, cigarettes, uncomplicated; L03.116 Cellulitis of left lower limb; Z91.018 Allergy to other foods; Z86.14 Personal history of Methicillin resistant Staphylococcus aureus infection; Z89.512 Acquired absence of left leg below knee; Z68.27 Body mass index [BMI] 27.0-27.9, adult; Z59.00 Homelessness unspecified
CPT/HCPCS: 36415; 36569; 71045; 73620; 73630; 73718; 76000; 76937; 80048; 80053; 80061; 80069; 80202; 80307; 81001; 82550; 82565; 82728; 83036; 83540; 83550; 83605; 83735; 85025; 85610; 85652; 85730; 86141; 86850; 86900; 86901; 87040; 87070; 87075; 87077; 87081; 87147; 87186; 87205; 93005; 93306; 93926; 93971; 96365; 96368; 97110; 97116; 97163; G0378; J2001; J2250; J2405; J2543; J2704; J3490

== ENCOUNTER 2025-06-12 15:19 | Inpatient (IN) | payer MEDICAID ==
[~2025-06-12] VITALS: Ht 188 cm; Wt 125.0 kg
[2025-06-12 22:29] LABS: Hematocrit 43.1 % (41.0-53.0); Hemoglobin 14.8 g/dL (13.5-17.5); Mean Corpuscular Hemoglobin 28.6 pg (28.0-32.0); Mean Corpuscular Volume 83.1 fL (80.0-100.0); Nucleated Red Blood Cells % 0.2 %
[2025-06-12 22:51] LABS: Alanine Aminotransferase 20 U/L (7-40); Albumin 4.3 g/dL (3.2-4.8); Chloride 105 mmol/L (98-107); Potassium 4.4 mmol/L (3.5-5.1); Sodium 137 mmol/L (136-145)
[2025-06-12 22:52] LABS: Anion Gap 8 (5-15); Calcium 9.3 mg/dL (8.7-10.4); Carbon Dioxide 24 mmol/L (20-31)
[2025-06-12 22:53] LABS: Alkaline Phosphatase 121 U/L (46-116)
[2025-06-12 22:57] LABS: BUN/Creatinine Ratio 10.1 (10.0-20.0); Blood Urea Nitrogen 11 mg/dL (9-23); Glucose 87 mg/dL (74-106)
[2025-06-12 22:58] LABS: Total Protein 7.9 g/dL (5.7-8.2)
[2025-06-12 23:05] LABS: Bilirubin, Total 0.3 mg/dL (0.2-1.0)
--- NOTE | 2025-06-13 01:24 | ED.PDOC ---
Musculoskeletal HPI Comments HPI: Poor Historian. We have not been able to find this patient multiple times as he L swabs. After we find him he leaves right away and comes back in few hours. He did this at least twice. 39-year-old male presents to emergency department for right foot wound for at least three weeks. He is concerned might be infected. Patient has history of neuropathy. Denies any history of diabetes. Denies any use of drugs. Denies any other acute symptoms. Past Medical History: Neuropathy Past Surgical History: Left foot amputation REVIEW OF SYSTEMS: CONSTITUTIONAL: Denies acute: fever, diaphoresis, chills, generalized weakness. HEAD: Denies acute: headache, photophobia Eyes: Denies acute: Double vision, vision loss, eye pain, eye discharge. EARS: Denies acute: tinnitus, hearing loss, ear discharge, ear pain, THROAT: Denies acute: sore throat, swelling, difficulty swallowing , pain with swallowing, change in voice. NECK: Denies acute: neck pain, neck swelling, stiff neck. HEART: Denies acute : chest pain, palpitations, LUNGS: Denies acute: SOB, wheezing, cough, hemoptysis ABDOMEN: Denies acute: abdominal pain, Nausea, Vomiting, diarrhea, melena , hematemesis, hematochezia SKIN: Denies acute: rash, redness, lesions, itchiness. EXTREMITIES: Denies acute: calf pain, numbness, tingling, weakness, Denies acute: Low back pain. Neuro: Denies acute: focal neurological deficit, motor or sensory focal neurological deficit, tremors, seizure like activity, confusion, dizziness, change in mental status, loss of bowel or bladder function, cauda equina like symptoms. : Denies acute: dysuria, hematuria, flank pain, increase in urinary frequency. PSYCH: Denies acute: hallucination, suicidal ideation, homicidal ideation. PHYSICAL EXAM: General: -----no---acute distress, awake and alert. Head: normocephalic, atraumatic. Neck: supple, trachea is midline, no swelling. Throat: Normal phonation. Eyes:, no erythema, no purulent discharge, no proptosis, no icterus. Heart: regular rate, regular rhythm, no significant murmur appreciated. Lungs: no apparent respiratory distress, Able to speak in full sentences. No wheezing, no rhonchi, no crackles. No stridors Clear to auscultation bilaterally. Abdomen: non tender to palpation, non distended, soft, no guarding, no rebound, + bowel sounds. Neuro: Awake, Alert, oriented to name, self, situation, follows commands GCS=15. Speech is normal. Skin: no petechia, no purpura, no cyanosis, non-pale, not jaundice. Lower extremities: --trace bilateral - Pitting edema no deformity, no calf TTP. Left foot amputation. Evaluation of the foot of complaint: Right foot lateral aspect has bulging with a wound that is nonpurulent with the associated erythema and swelling. Patient is neurovascularly intact in the affected extremity. Pedal pulses palpable. Makes eye contact. moves all four extremities. Face: no apparent facial droop. Pedal pulses are palpable. ED COURSE: DISCLAIMER: This medical document was created using an electronic medical record system with voice recognition software and computerized dictation system. Although this document has been carefully reviewed, there might still be some phonetic and typographical errors. Occasional wrong-word or "sound-alike" substitutions may have occurred due to the inherent limitations of voice recognition software. These areas are purely typographical due to imperfections of the software programs and do not reflect any compromise in the patient's medical care. Please read the chart carefully and recognize, using context, where these substitutions have occurred. Time Seen by MD: 15:23 Primary Care Provider: NONE Reviewed Notes: Allergies Allergies: Coded Allergies: Chicken Allergy (Verified Allergy, Intermediate, 01/10/24) Tuna Flavoring Agent (non-screening (Verified Allergy, Unknown, 03/08/24) Home Meds No Active Prescriptions or Reported Meds Information Source: Patient Location: Right Past Medical History PAST MEDICAL HISTORY: CHF Family History Family History: Unknown Social History Smoker: Cigarettes Drugs: Marijuana, Other Lives In: Home Was a procedure done? Was a procedure done?: No Differential Diagnosis EXT Differential Diagnosis: Cellulitis, CHF, Deep Vein Thrombosis, Compartment Syndrome, Fracture, Sprain, Dislocation, Gout, DJD, Myocardial Infarction, Contusion, Strain, Rheumatoid, Septic, Neurovascular injury, Arthritis, Bursitis, Other Other Differential Diagnosis Osteomyelitis X-Ray, Labs, Meds, VS Lab Test 06/13/25 00:42 06/12/25 23:29 06/12/25 22:10 Range/Units Erythrocyte Sedimentation Rate 17 0-20 mm/hr B-Type Natriuretic Peptide 27.62 0-100 pg/mL White Blood Count 7.1 4.4-10.8 10^3/uL Red Blood Count 5.19 4.5-5.90 10^6/uL Hemoglobin 14.8 13.5-17.5 g/dL Hematocrit 43.1 41.0-53.0 % Mean Corpuscular Volume 83.1 80.0-100.0 fL Mean Corpuscular Hemoglobin 28.6 28.0-32.0 pg Mean Corpuscular Hemoglobin Concent 34.4 32.0-36.0 g/dL Red Cell Distribution Width 13.4 11.8-14.3 % Platelet Count 267 140-450 10^3/uL Mean Platelet Volume 7.0 6.9-10.8 fL Neutrophils (%) (Auto) 57.8 37.0-80.0 % Lymphocytes (%) (Auto) 30.4 10.0-50.0 % Monocytes (%) (Auto) 8.9 0.0-12.0 % Eosinophils (%) (Auto) 2.4 0.0-7.0 % Basophils (%) (Auto) 0.5 0.0-2.0 % Neutrophils # (Auto) 4.1 1.6-8.6 10 ^3/uL Lymphocytes # (Auto) 2.2 0.4-5.4 10 ^3/uL Monocytes # (Auto) 0.6 0-1.3 10 ^3/uL Eosinophils # (Auto) 0.2 0-0.8 10 ^3/uL Basophils # (Auto) 0 0-0.2 10 ^3/uL Nucleated Red Blood Cells 0.2 % Sodium Level 137 136-145 mmol/L Potassium Level 4.4 3.5-5.1 mmol/L Chloride Level 105 98-107 mmol/L Carbon Dioxide Level 24 20-31 mmol/L Anion Gap 8 5-15 Blood Urea Nitrogen 11 9-23 mg/dL Creatinine 1.09 0.700-1.30 mg/dL Glomerular Filtration Rate Calc 88 >90 mL/min BUN/Creatinine Ratio 10.1 10.0-20.0 Serum Glucose 87 74-106 mg/dL Lactic Acid Level 1.6 0.4-2.0 mmol/L Calcium Level 9.3 8.7-10.4 mg/dL Total Bilirubin 0.3 0.2-1.0 mg/dL Aspartate Amino Transferase (AST) 24 13-40 U/L Alanine Aminotransferase (ALT) 20 7-40 U/L Alkaline Phosphatase 121 H 46-116 U/L C-Reactive Protein High Sensitivity 0.78 <1.0 mg/dL Total Protein 7.9 5.7-8.2 g/dL Albumin 4.3 3.2-4.8 g/dL Time of 1ST Reevaluation: 02:35 Reevaluation 1ST: Unchanged Patient Education/Counseling: Diagnosis, Treatment Family Education/Counseling: Other Comments MDM: patient presented with the above HPI.---foot wound/ ---workup was initiated. patient was found with the above mentioned diagnosis. the following medications were ordered: please refer to order lists of meds and tests obtained by myself Dr. Mustafa. Patient ED course and VS have been stabilized. Patient has been reassessed in the ED and remained in a stable condition. Pertinent incidental findings were discussed with the patient and/or family. Patient/family voices understanding and is agreeable with plan. Patient has been observed in the ED adequate length of time to insure improvement/stability. Escalation of care considered: Consideration of escalation to observation or admission Patient is high-risk for MRSA. Patient had his left foot amputated due to the same events that led to his current presentation today of the contralateral foot. Patient stated he had a blister that he popped few weeks ago and then it developed into the swelling and redness of his foot that he came the ED for. Patient was ADMITTED to the medicine team for further evaluation and treatment of their presentation. All the reports of any imaging studies that were ordered by myself were reviewed by myself. Sepsis Sepsis Reasesment Focused Exam Orders: Laboratory Tests 06/12/25 22:10: Lactic Acid Level 1.6 Departure 1 Departure Time of Disposition: 01:20 Impression: Primary Impression: Foot abscess, right Additional Impression: Foot fracture, right Disposition: 09 ADMITTED INPATIENT Admit to: Tele Condition: Stable e-Prescriptions No Active Prescriptions or Reported Meds Discharged With: Self Critical Care Note Critical Care Time?: No SHREE MUSTAFA DO Jun 13, 2025 01:24
[2025-06-13] MEDS: VANCOMYCIN 1GM/250ML KIT 250 ML IV ONE (01:30)
--- NOTE | 2025-06-13 01:46 | DVH ---
CLINICAL INDICATION: swelling, infection TECHNIQUE: XY R FOOT 3 VIEW XRAY Comparison: XY L FOOT 2 VIEW XRAY on DOS: 02/24/24, XY L FOOT 3 VIEW XRAY on DOS: 02/21/24, XY R FOOT 3 VIEW XRAY on DOS: 02/21/24, XY L FOOT 3 VIEW XRAY on DOS: 01/09/24 FINDINGS/IMPRESSION: : There is no evidence of acute fracture or dislocation. Chronic appearing fracture deformity of the ba se of the 5th metatarsal noted. Soft tissue defect noted laterally adjacent to the chronic fracture deformity of the 5th metatarsal b ase. Retrocalcaneal enthesopathy. Soft tissues are otherwise unremarkable.
[2025-06-13] MEDS ORDERED: MORPHINE SULFATE INJ 2 MG/ml SYRG IV PRN (04:45)
[2025-06-13] MEDS ORDERED: DOCUSATE SOD 100 MG CAP PO PRN (04:45)
[2025-06-13] MEDS ORDERED: ACETAMINOPHEN 325 MG TAB PO PRN (04:45)
[2025-06-13] MEDS ORDERED: ONDANSETRON HCL 4 MG/2 ML VIAL IV PRN (04:45)
[2025-06-13] MEDS: CEFEPIME 2GM/50ML NS 50 ML IV SCH (06:00)
--- NOTE | 2025-06-13 06:58 | DVHHPRES ---
History of Present Illness Resident Creating Document: KRISTIN THOMAS RESIDENT Reason for Visit: Right foot wound with redness and drainage x ~3 weeks History of Present Illness 39-year-old male with peripheral neuropathy, history of left below-knee amputation (BKA) after prior left foot cellulitis/osteomyelitis (s/p ankle abscess drainage and prior wound VAC), HFrEF (echo 2023 EF ? 30%), tobacco use, occasional THC, no known diabetes, and food allergies to chicken and turkey (tuna tolerated), presents with a new right lateral/dorsal foot wound. Three w eeks ago, new shoe rubbed the area ? blister; patient self-lanced with purulent drainage; ongoing erythema with intermittent drainage; has been changing dressings. Minimal pain (baseline neuropathy). Denies systemic symptoms volunteered; he seeks care to prevent progression to bone as happened on the left. Initial bedside exam (ED/martinez): * Right foot: lateral/dorsal wound with surrounding erythema; patient reports prior purulence, currently covered with dressing; extension slightly onto plantar surface. Pulses present in RLE; capillary refill good. Bilateral pedal edema, skin thickening / hair loss of lower legs. Left BKA stump intact by report. * No documented fever/chills in history provided. Hemodynamics not provided. Working Impression Today: Right foot cellulitis with open wound; possible abscess; high risk for osteomyelitis given 3-week course, purulence, neuropathy, prior contralateral osteomyelitis, and footwear trauma. Also at risk for peripheral arterial disease and venous stasis disease (trophic skin changes) which can impair healing. HFrEF (EF 30%) increases risk from fluids/QIAN. Immediate Plan Summary (initiated/ordered from ED for admission): * Admit to Med-Surg with telemetry (HFrEF; IV antibiotics; wound monitoring). * Broad IV antibiotics targeting MRSA + gram-negatives (including Pseudomonas) pending cultures: Vancomycin + Cefepime, Metronidazole * Diagnostics: CBC, CMP, Mg/Phos, ESR, CRP, lactate (if febrile/tachycardic), 2 sets blood cultures (prior to antibiotics if possible), wound culture with Gram stain and anaerobic culture, MRSA nasal screen. Screen for occult DM (A1c, fasting glucose). BNP only if HF symptoms. * Imaging: Right foot X-ray (3 views) now (gas, foreign body, bony changes). If osteomyelitis suspected after exam/labs/X-ray, MRI right foot with and without contrast. Ankle-Brachial Index (DIRK)/Toe pressures to assess perfusion; arterial duplex PRN based on DIRK. Consider venous duplex if unilateral swelling out of proportion. * Consults: Podiatry for bedside debridement/advanced off-loading; Wound Care nursing; Vascular Surgery if perfusion impaired; Infectious Diseases if osteomyelitis confirmed or complex pathogens. * Wound care: Saline cleanse; avoid caustics; absorbent/alginate dressing if draining, otherwise non-adherent contact layer + secondary dressing; strict off- loading (post-op shoe/foam off-hoist cylinder loader); keep pressure off lateral/plantar area. * CHF precautions: Avoid unnecessary IV fluids; daily weights, strict I/O; continue home HF meds when reconciled; low-salt diet. * DVT prophylaxis: Heparin 5,000 units SQ q8h + SCDs (hold if immediate procedure). * Pain: Acetaminophen PRN; avoid NSAIDs (renal/HF). * Smoking cessation: Nicotine patch + counseling. * Nutrition: High-protein diet; Nutrition consult for wound healing; check albumin/prealbumin if available. * PT/OT evaluation; Case Management for safe footwear/off-loading and discharge planning. * Code status presumed Fullconfirm on admission. Past Medical History Peripheral neuropathy; HFrEF (EF ~30% on 2023 echo); prior left foot cellulitis/osteomyelitis; tobacco use disorder; occasional THC. No known DM per patient. Past Surgical History Left BKA; prior left ankle abscess I&D; prior wound VAC Family History Not contributory for present problem as provided. Past Social History Lives independently ([facility] stay x14 months in past for infections). Smokes cigarettes (cut back); rare THC. Denies heavy alcohol use in this encounter. Mobility limited by prior amputation and wound. Review of Systems Review of Systems * General: No systemic complaints volunteered; fatigue/fever/chills not elicited in provided historywill clarify on intake. * Skin/Extremities: Right foot wound with erythema and drainage; bilateral leg skin thickening; edema present. * CV/Resp: No chest pain or dyspnea reported today. * GI/: No N/V/D or urinary complaints reported. * Neuro: Chronic distal sensory loss (peripheral neuropathy); no new focal deficits reported. * MSK: No trauma; minimal pain at wound (neuropathy). Allergies: Coded Allergies: Chicken Allergy (Verified Allergy, Intermediate, 01/10/24) Tuna Flavoring Agent (non-screening (Verified Allergy, Unknown, 03/08/24) Medications Current Medications Medications Dose Ordered Sig/Sarina Route Start Time Stop Time Status Last Admin Dose Admin Ondansetron HCl 4 mg Q4HP PRN IV 06/13/25 04:45 Docusate Sodium 100 mg BIDPRN PRN PO 06/13/25 04:45 Enoxaparin Sodium 40 mg DAILY SC 06/13/25 10:00 Acetaminophen 650 mg Q6HP PRN PO 06/13/25 04:45 Morphine Sulfate 2 mg Q4HPRN PRN IV 06/13/25 04:45 Cefepime HCl 50 ml @ 50 mls/hr Q8HR IV 06/13/25 06:00 Metronidazole 100 ml @ 100 mls/hr Q8HR IV 06/13/25 06:00 Exam Vital Signs Vital Signs Date Time Temp Pulse Resp B/P (MAP) Pulse Ox O2 Delivery O2 Flow Rate FiO2 06/13/25 03:12 97.9 78 20 139/87 97 97.9 Exam * General: Alert, conversant; no acute distress reported. * Vitals: Not provided in ED note; obtain on admission and trend. * Cardiac: Regular by report. * Lungs: No respiratory distress reported. * Vascular: RLE pulses present, capillary refill normal. Bilateral pedal edema. * Skin/Extremities: Right foot lateral/dorsal open wound with surrounding erythema; patient reports prior pus; minimal tenderness; extends slightly to plantar surface; no crepitus reported. Lower legs with skin thickening and sparse hair. Left BKA stump present. * Neuro: Diminished distal sensation (peripheral neuropathy). * Abdomen: Soft, non-tender * Psych: Appropriate. Labs/Xrays Labs Test 06/13/25 00:42 06/12/25 23:29 06/12/25 22:10 Range/Units Erythrocyte Sedimentation Rate 17 0-20 mm/hr B-Type Natriuretic Peptide 27.62 0-100 pg/mL White Blood Count 7.1 4.4-10.8 10^3/uL Red Blood Count 5.19 4.5-5.90 10^6/uL Hemoglobin 14.8 13.5-17.5 g/dL Hematocrit 43.1 41.0-53.0 % Mean Corpuscular Volume 83.1 80.0-100.0 fL Mean Corpuscular Hemoglobin 28.6 28.0-32.0 pg Mean Corpuscular Hemoglobin Concent 34.4 32.0-36.0 g/dL Red Cell Distribution Width 13.4 11.8-14.3 % Platelet Count 267 140-450 10^3/uL Mean Platelet Volume 7.0 6.9-10.8 fL Neutrophils (%) (Auto) 57.8 37.0-80.0 % Lymphocytes (%) (Auto) 30.4 10.0-50.0 % Monocytes (%) (Auto) 8.9 0.0-12.0 % Eosinophils (%) (Auto) 2.4 0.0-7.0 % Basophils (%) (Auto) 0.5 0.0-2.0 % Neutrophils # (Auto) 4.1 1.6-8.6 10 ^3/uL Lymphocytes # (Auto) 2.2 0.4-5.4 10 ^3/uL Monocytes # (Auto) 0.6 0-1.3 10 ^3/uL Eosinophils # (Auto) 0.2 0-0.8 10 ^3/uL Basophils # (Auto) 0 0-0.2 10 ^3/uL Nucleated Red Blood Cells 0.2 % Sodium Level 137 136-145 mmol/L Potassium Level 4.4 3.5-5.1 mmol/L Chloride Level 105 98-107 mmol/L Carbon Dioxide Level 24 20-31 mmol/L Anion Gap 8 5-15 Blood Urea Nitrogen 11 9-23 mg/dL Creatinine 1.09 0.700-1.30 mg/dL Glomerular Filtration Rate Calc 88 >90 mL/min BUN/Creatinine Ratio 10.1 10.0-20.0 Serum Glucose 87 74-106 mg/dL Lactic Acid Level 1.6 0.4-2.0 mmol/L Calcium Level 9.3 8.7-10.4 mg/dL Total Bilirubin 0.3 0.2-1.0 mg/dL Aspartate Amino Transferase (AST) 24 13-40 U/L Alanine Aminotransferase (ALT) 20 7-40 U/L Alkaline Phosphatase 121 H 46-116 U/L C-Reactive Protein High Sensitivity 0.78 <1.0 mg/dL Total Protein 7.9 5.7-8.2 g/dL Albumin 4.3 3.2-4.8 g/dL SEPSIS Sepsis Screen Date sepsis recognized/suspect: Jun 13, 2025 Time Sepsis recognized/suspect: 329 Recent Procedure: No On Antibiotic Therapy: No Respiratory Rate >20: No Heart Rate >90: No Temp<36 C (96.8 F) or >38.3 C: No SBP <90 or MAP <65 mmHG: No New Acute Mental Status Change: No Is the patient on CPAP, BIPAP,: No Physician Orders R Foot 3 View Xray (06/13/25 01:20) Admit (06/13/25 04:42) Code Status (06/13/25 04:42) Ondansetron Hcl (Zofran) (06/13/25 04:45) Docusate Sodium Capsule (Colace Capsule) (06/13/25 04:45) Enoxaparin Sodium (Lovenox) (06/13/25 10:00) Complete Blood Count (06/14/25 04:00) Comprehensive Metabolic Panel (06/14/25 04:00) Cardiac Diet-2gna,Lofat,Lochol (06/13/25 Breakfast) Echo 2d Mode Cardiac Dop (06/13/25 04:42) Condition: Unstable (06/13/25 04:42) Acetaminophen Tablet (Tylenol Tablet) (06/13/25 04:45) Morphine Sulfate Injection (06/13/25 04:45) Vancomycin Per Pharmacy Protoc (06/13/25 04:42) Cefepime 2gm/50ml Ns (Maxipime 2gm/50ml) (06/13/25 06:00) Metronidazole 500mg/100ml (Flagyl 500mg/ (06/13/25 06:00) * Wound Consult (06/13/25 ) Wound Dressing: BID (06/13/25 04:42) Wound Culture W/ Gs (06/13/25 04:42) *Podiatry Consult [facility]) (06/13/25 04:42) Vital Signs Date Time Temp Pulse Resp B/P (MAP) Pulse Ox O2 Delivery O2 Flow Rate FiO2 06/13/25 03:12 97.9 78 20 139/87 97 97.9 Laboratory Tests Test 9/15/25 22:10 Lactic Acid Level 1.6 mmol/L (0.4-2.0) White Blood Count 7.1 10^3/uL (4.4-10.8) Assessment/Plan Assessment/Plan Assessment 1. Right foot cellulitis with open wound; r/o abscess and osteomyelitis (POA) 2. Peripheral neuropathy (POA) contributes to lack of pain and delayed detection. 3. History of left BKA due to prior osteomyelitis (POA) major risk marker for limb loss; impacts mobility and discharge planning. 4. HFrEF, chronic, EF ~30% (2023) (POA) ; increases risk for fluid overload, QIAN with nephrotoxic combos. 5. Possible PAD / chronic venous stasis disease (POA) suggested by trophic ski n changes, edema; to be confirmed with DIRK/duplex. 6. Tobacco use disorder (POA) impairs wound healing; cessation counseling i ndicated. Plan 1. Right foot cellulitis abscess; r/o osteomyelitis * Antibiotics (empiric): * Vancomycin IV (dose by pharmacy per weight/renal; trough AUC-guided). * Cefepime IV 2 g q812h (renal adjust). * Add Metronidazole IV 500 mg q8h if deep/necrotic odor or anaerobic concern. * De-escalate per culture/ID guidance within 4872h. * Cultures: Wound culture & Gram stain; Blood cultures x2 if not yet obtained. * Imaging: R foot X-ray now; MRI w/wo if X-ray or exam suggests osteomyelitis or if wound fails to respond. * Bedside ultrasound if fluctuance suspected; I&D if abscess present. * LRINEC score after labs; monitor for NSTI red flags. * Wound care: saline cleanse; alginate for drainage or non-adherent contact layer if dry; daily dressing changes; strict off-loading (post-op shoe / donut off-hoist cylinder loader). * Pain: acetaminophen; avoid NSAIDs. 2. Perfusion assessment (PAD/venous disease) *arterial duplex SCAN * Vascular Surgery consult if ischemia or poor healing potential. * Elevation, compression only if DIRK adequate (avoid compression if significant PAD). 3. HFrEF (EF ~30%) * Repeat Echo ordered * Avoid unnecessary IV fluids; strict I/O, daily weights; low-salt diet. * Resume/optimize GDMT (MICHAEL/ARB/ARNI, evidence beta-calixto, MRA, SGLT2i) after med reconciliation and when hemodynamically appropriate. * Cautious diuresis only if volume overloaded clinically. 4. Peripheral neuropathy * Foot care education; Podiatry to guide protective footwear/orthotics; avoid haq/trauma. 5. Tobacco use disorder * Nicotine patch; brief counseling; offer cessation resources. 6. Screen for diabetes / metabolic contributors * A1c, fasting glucose; start glycemic monitoring while inpatient (infection-related hyperglycemia possible). Treat if ?180 mg/dL with basal/bolus protocol. 7. Nutrition & Rehab * Nutrition consult for high-protein wound-healing diet (consider Zn/Vit C if deficient). * PT/OT for mobility with left BKA and right foot off-loading; fall precautions. 8. VTE prophylaxis / GI prophylaxis * LOVENOC (hold around procedures). * GI prophylaxis not routinely indicated; consider famotidine if additional risk factors. Plan discussed with: Patient My Orders Orders - KRISTIN THOMAS RESIDENT Procedure Category Date Status Time Admit ADMIT 06/13/25 Transmitted 04:42 Code Status CODE 06/13/25 Transmitted 04:42 Ondansetron Hcl PHA 06/13/25 In Process (Zofran) 04:45 Docusate Sodium PHA 06/13/25 In Process Capsule (Colace 04:45 Enoxaparin Sodium PHA 06/13/25 In Process (Lovenox) 10:00 Complete Blood Count LAB 06/14/25 Verified 04:00 Comprehensive LAB 06/14/25 Verified Metabolic Panel 04:00 Cardiac DIET 06/13/25 Transmitted Diet-2gna,Lofat,Lochol Breakfast Echo 2d Mode Cardiac US 06/13/25 Logged DOP 04:42 Condition: Unstable FELIPE 06/13/25 In Process 04:42 Acetaminophen Tablet PHA 06/13/25 In Process (Tylenol Tablet) 04:45 Morphine Sulfate PHA 06/13/25 In Process Injection 04:45 Vancomycin Per FELIPE 06/13/25 In Process Pharmacy Protoc 04:42 Cefepime 2gm/50ml Ns PHA 06/13/25 In Process (Maxipime 2gm/50ml) 06:00 Metronidazole PHA 06/13/25 In Process 500mg/100ml (Flagyl 06:00 * Wound Consult CONS 06/13/25 Transmitted Wound Dressing: FELIPE 06/13/25 In Process 04:42 Wound Culture W/ Gs DURGA 06/13/25 Logged 04:42 *Podiatry Consult CONS 06/13/25 Transmitted [facility](Dv[facility]) 04:42 Date of Service: Jun 13, 2025 Billing Provider: ANGEL VALDES MD Common Visit Codes: [id number] INP/OBS CARE (HIGH) KRISTIN THOMAS RESIDENT Jun 13, 2025 06:58
[2025-06-13] MEDS: ENOXAPARIN SOD 40 MG/0.4 ML SYRINGE SC SCH (10:00)
[2025-06-13] MEDS: PIPERACILLIN-TAZOB 3.375GM 100 ML IV ONE (10:09)
[2025-06-13 11:15] VITALS: BP 107/50; PULSE 78; RESP 18; TEMP 98.3; O2SAT 97
--- NOTE | 2025-06-13 12:50 | DVH ---
CLINICAL INDICATION: r/o OM COMPARISON: XY R FOOT 3 VIEW XRAY on DOS: 06/13/25 TECHNIQUE: Multiplanar, multisequence MRI of the right foot was performed without intravenous contras t. Contrast: None. INTERPRETATION: Bones: No evidence of acute fracture. There is an old 5th metatarsal fracture. There is no marrow rep lacing lesion. Joints: Hammertoe deformities. Soft tissues: The Lisfranc ligament is intact. The medial and lateral collateral ligaments are intac t at the metatarsophalangeal joints. The flexor and extensor tendons are intact. There is no planta r plate tear. There is T2 hyperintensity in the intrinsic muscles of the foot. No soft tissue mass or fluid collection. IMPRESSION: 1. No evidence of osteomyelitis in the right foot. 2. Hammertoe deformities. 3. Edema in the intrinsic muscles may reflect denervation or myositis.
== END 2025-06-13 14:59 | disposition left against medical advice (07) | DRG 383 ==
LOC: EDBD 15:19 → EDUNIT# 15:19 → ER 15:31 → OVERFLOW 06-13 04:42
PROVIDERS: ADMIT Nurse Practitioner Acute Care; ATTEND Nurse Practitioner Acute Care
DX: L02.611 Cutaneous abscess of right foot (principal); I50.22 Chronic systolic (congestive) heart failure; L03.115 Cellulitis of right lower limb; F17.210 Nicotine dependence, cigarettes, uncomplicated; G62.9 Polyneuropathy, unspecified; Z53.29 Procedure and treatment not carried out because of patient's decision for other reasons; I73.9 Peripheral vascular disease, unspecified; I87.8 Other specified disorders of veins; Z91.018 Allergy to other foods; Z89.512 Acquired absence of left leg below knee
CPT/HCPCS: 36415; 73630; 73718; 80053; 83605; 83880; 85025; 85652; 86141; 87040; G0378; J0692; J2543; J3490

== ENCOUNTER 2025-06-17 16:57 | Inpatient (IN) | payer MEDICAID ==
[~2025-06-17] VITALS: Ht 195.6 cm; Wt 124.3 kg
--- NOTE | 2025-06-17 17:16 | ED.PDOC ---
Musculoskeletal HPI Comments This patient is a morbidly obese 39-year-old male who returns to the ED today for continued evaluation of right foot concerns. Patient was seen this facility four days ago and admitted for right foot cellulitis and possible MRSA evaluation. 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 Patient states he was here for extended time and did not receive a bed and therefore, eloped with the facility. Patient denies any fever nausea or vomiting. Vital signs were stable. Chief Complaint: Lower Extremity Time Seen by MD: 17:00 Primary Care Provider: NONE Reviewed Notes: Nurses Notes Allergies: Coded Allergies: Chicken Allergy (Verified Allergy, Intermediate, 01/10/24) Tuna Flavoring Agent (non-screening (Verified Allergy, Unknown, 03/08/24) Home Meds No Active Prescriptions or Reported Meds Information Source: Patient Mode of Arrival: Ambulatory Location: Right Extremity Location: Foot Timing: Weeks Prehospital treatment: None Severity: Moderate Able to Move Extremity: Yes Bear Weight: Limited Pain: Moderate Hand Dominance: Right Mechanism: Spontaneous Circumstances: Spontaneous Onset of Symptoms: Spontaneous Symptoms: Swelling, Pain DVT Risk Factors: NONE Past Medical History PAST MEDICAL HISTORY: CHF Surgical History: Denies all surgeries Surgical History (Other): Patient has had a left forefoot amputation Family History Family History: Unknown Social History Smoker: Cigarettes Alcohol: Denies ETOH Use Drugs: Marijuana, Other Lives In: Home Constitutional: denies: chills, diaphoresis, fatigue, fever, malaise, sweats, weakness, others EENTM: denies: blurred vision, double vision, ear bleeding, ear discharge, ear drainage, ear pain, ear ringing, eye pain, eye redness, hearing loss, mouth pain, mouth swelling, nasal discharge, nose bleeding, nose congestion, nose pain, photophobia, tearing, throat pain, throat swelling, voice changes, others Respiratory: denies: cough, hemoptysis, orthopnea, SOB at rest, shortness of breath, SOB with excertion, stridor, wheezing, others Cardiovascular: denies: chest pain, dizzy spells, diaphoresis, Dyspnea on exertion, edema, irregular heart beat, left arm pain, lightheadedness, palpitations, PND, syncope, others Gastrointestinal: denies: abdomen distended, abdominal pain, blood streaked bowels, constipated, diarrhea, dysphagia, difficulty swallowing, hematemesis, melena, nausea, poor appetite, poor fluid intake, rectal bleeding, rectal pain, vomiting, others Genitourinary: denies: burning, dysuria, flank pain, frequency, hematuria, incontinence, penile discharge, penile sore, pain, testicle pain, testicle swelling, urgency, others Neurological: denies: dizziness, fainting, headache, left sided numbness, left sided weakness, numbness, paresthesia, pre-existing deficit, right sided numbn ess, right sided weakness, seizure, speech problems, tingling, tremors, weakness, others Musculoskeletal: reports: others (Lateral right foot eschar and pain); denies: back pain, gout, joint pain, joint swelling, muscle pain, muscle stiffness, neck pain Integumetry: denies: bruises, change in color, change in hair/nails, dryness, laceration, lesions, lumps, rash, wounds, others Allergic/Immunocompromised: denies: Difficulty Healing, Frequent Infections, Hives, Itching, others Hematologic/Lymphatic: denies: anemia, blood clots, easy bleeding, easy bruising, swollen glands, others Endocrine: denies: excessive hunger, excessive sweating, excessive thirst, excessive urination, flushing, intolerance to cold, intolerance to heat, unexplained weight gain, unexplained weight loss, others Psychiatric: denies: anxiety, bipolar disorder, depression, hopeless, panic disorder, schizophrenia, sleepless, suicidal, others Physical Exam General Appearance: Moderate Distress ([id number] distress due to foot pain concerns.), Obese HEENT: Normal ENT Inspection, Pharynx Normal, TMs Normal Neck: Full Range of Motion, Non-Tender, Normal, Normal Inspection Respiratory: Chest Non-Tender, Lungs Clear, No Accessory Muscle Use, No Respiratory Distress, Normal Breath Sounds Cardiovascular: No Edema, No JVD, No Murmur, No Gallop, Normal Peripheral Pulses, Regular Rate/Rhythm Breast Exam: Deferred Gastrointestinal: No Organomegaly, Non Tender, No Pulsatile Mass, Normal Bowel Sounds, Soft Genitalia: Deferred Pelvic: Deferred Rectal: Deferred Extremities: Other (Lateral right foot reveals a large BP eschar as well as localized edema and erythema.) Neurologic: Alert Cerebellar Function: NOT DONE Reflexes: NOT DONE Skin: Dry, Normal Color, Warm Lymphatic: No Adenopathy Was a procedure done? Was a procedure done?: No Differential Diagnosis EXT Differential Diagnosis: Cellulitis X-Ray, Labs, Meds, VS Vital Signs Date Time Temp Pulse Resp B/P (MAP) Pulse Ox O2 Delivery O2 Flow Rate FiO2 06/17/25 16:59 97.6 94 18 147/81 99 97.6 X-Ray, Labs, Meds, VS Comment Patient will be admitted for IV antibiotic management of his right foot eschar as well as podiatry evaluation due to history of MRSA and left forefoot amputation. Time of 1ST Reevaluation: 17:14 Reevaluation 1ST: Unchanged Consultation: PCP, Other (Podiatry) Patient Education/Counseling: Diagnosis, Treatment Family Education/Counseling: Diagnosis, Treatment Sepsis Recent Procedure: No On Antibiotic Therapy: No Respiratory Rate >20: No Heart Rate >90: No Temp<36 C (96.8 F) or >38.3 C: No SBP <90 or MAP <65 mmHG: No New Acute Mental Status Change: No Is the patient on CPAP, BIPAP,: No IV fluid given: No Departure 1 Departure Time of Disposition: 17:14 Impression: Primary Impression: Cellulitis of right foot Disposition: ADMITTED INPATIENT Condition: Fair e-Prescriptions No Active Prescriptions or Reported Meds Discharged With: Self Critical Care Note Critical Care Time?: No Stability Stability form required: No Heart Score Heart Score: Heart Score Response (Comments) Value History N/A 0 EKG N/A 0 Age N/A 0 Risk Factors N/A 0 Troponin N/A 0 Total 0 NEHA OSBORN PAC Jun 17, 2025 17:15
[2025-06-17 17:47] LABS: Hematocrit 42.8 % (41.0-53.0); Hemoglobin 14.5 g/dL (13.5-17.5); Mean Corpuscular Hemoglobin 27.8 pg (28.0-32.0); Mean Corpuscular Volume 82.3 fL (80.0-100.0); Nucleated Red Blood Cells % 0.0 %
[2025-06-17 18:01] LABS: Alanine Aminotransferase 18 U/L (7-40); Albumin 4.3 g/dL (3.2-4.8); Anion Gap 9 (5-15); BUN/Creatinine Ratio 13.5 (10.0-20.0); Blood Urea Nitrogen 14 mg/dL (9-23); Calcium 9.3 mg/dL (8.7-10.4); Carbon Dioxide 25 mmol/L (20-31); Chloride 105 mmol/L (98-107); Glucose 98 mg/dL (74-106); Lipase 33 U/L (12-53); Potassium 4.3 mmol/L (3.5-5.1); Sodium 139 mmol/L (136-145); Total Protein 7.8 g/dL (5.7-8.2)
[2025-06-17 18:04] LABS: Alkaline Phosphatase 117 U/L (46-116); Bilirubin, Total 0.2 mg/dL (0.2-1.0)
[2025-06-17 18:08] LABS: Lactic Acid w/Reflex 2.2 mmol/L (0.4-2.0)
[2025-06-17] MEDS: SODIUM CHLORIDE 0.9% 1,000 ML IV ONE (18:50)
--- NOTE | 2025-06-17 21:02 | DVHHPRES ---
History of Present Illness Resident Creating Document: RON MORA RESIDENT History of Present Illness This is a 39-year-old male with peripheral neuropathy, 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 He reports that he was putting more pressure on the right foot for the past year post amputation and it started with a bulge on the right side of the foot, later a blister repaired with popped open and purulent drainage was seen. Patient had no means to come to the ER apparently per patient. He denies fever or chills, nausea or vomiting, chest pain or shortness of breaths at this time. On arrival to the ER patient is afebrile, on room air. Lactic acid 2.2, now 1.3. Past medical/surgical history:peripheral neuropathy, left foot amputation 1 year back, heart failure with the ejection fraction-EF 30% 2023, nicotine dependence Social history: Smokes cigarettes, rents a room, no family locally. History of former drug use last time 1 year back Patient does not want anyone to reach out to his emergency contact or family. Review of Systems Allergies: Coded Allergies: Chicken Allergy (Verified Allergy, Intermediate, 01/10/24) Tuna Flavoring Agent (non-screening (Verified Allergy, Unknown, 03/08/24) Exam Vital Signs Vital Signs Date Time Temp Pulse Resp B/P (MAP) Pulse Ox O2 Delivery O2 Flow Rate FiO2 06/17/25 20:43 100 16 95 06/17/25 20:43 98.7 127/76 (93) 98.7 Exam Obese male patient sitting in a wheelchair outside ER, well conversational, on room air General: Obese, afebrile, palor, mucosae are moist Cardiovascular: Regular S1 and S2. No murmurs, gallops or rubs. No JVD elevation. Bilateral legs were swollen with pitting edema 1+. Respiratory: Bilateral decreased breath sound on auscultation, no wheezing heard. Abdomen: Soft, nontender, nondistended, normoactive bowel sounds, no rebound tenderness, no organomegaly, no masses Genitourinary: Deferred MSK/skin: Left foot amputation, stump clean, dry, no drainage. Bilateral upper have arshad from injection drug use. Right lateral foot has a open wound, with surrounding erythema, absent sensation, no active drainage seen. Neurological: Pupils are isocoric and reactive. Psych/Mental Status: A/Ox3 Labs/Xrays Labs Test 06/17/25 20:34 06/17/25 19:29 06/17/25 17:29 Range/Units Lactic Acid Level 1.3 0.4-2.0 mmol/L White Blood Count 6.0 4.4-10.8 10^3/uL Red Blood Count 5.20 4.5-5.90 10^6/uL Hemoglobin 14.5 13.5-17.5 g/dL Hematocrit 42.8 41.0-53.0 % Mean Corpuscular Volume 82.3 80.0-100.0 fL Mean Corpuscular Hemoglobin 27.8 L 28.0-32.0 pg Mean Corpuscular Hemoglobin Concent 33.8 32.0-36.0 g/dL Red Cell Distribution Width 13.3 11.8-14.3 % Platelet Count 292 140-450 10^3/uL Mean Platelet Volume 6.9 6.9-10.8 fL Neutrophils (%) (Auto) 66.5 37.0-80.0 % Lymphocytes (%) (Auto) 23.0 10.0-50.0 % Monocytes (%) (Auto) 8.0 0.0-12.0 % Eosinophils (%) (Auto) 1.8 0.0-7.0 % Basophils (%) (Auto) 0.7 0.0-2.0 % Neutrophils # (Auto) 4.0 1.6-8.6 10 ^3/uL Lymphocytes # (Auto) 1.4 0.4-5.4 10 ^3/uL Monocytes # (Auto) 0.5 0-1.3 10 ^3/uL Eosinophils # (Auto) 0.1 0-0.8 10 ^3/uL Basophils # (Auto) 0 0-0.2 10 ^3/uL Nucleated Red Blood Cells 0.0 % Sodium Level 139 136-145 mmol/L Potassium Level 4.3 3.5-5.1 mmol/L Chloride Level 105 98-107 mmol/L Carbon Dioxide Level 25 20-31 mmol/L Anion Gap 9 5-15 Blood Urea Nitrogen 14 9-23 mg/dL Creatinine 1.04 0.700-1.30 mg/dL Glomerular Filtration Rate Calc 93 >90 mL/min BUN/Creatinine Ratio 13.5 10.0-20.0 Serum Glucose 98 74-106 mg/dL Calcium Level 9.3 8.7-10.4 mg/dL Total Bilirubin 0.2 0.2-1.0 mg/dL Aspartate Amino Transferase (AST) 23 13-40 U/L Alanine Aminotransferase (ALT) 18 7-40 U/L Alkaline Phosphatase 117 H 46-116 U/L Total Protein 7.8 5.7-8.2 g/dL Albumin 4.3 3.2-4.8 g/dL Lipase 33 12-53 U/L SEPSIS Sepsis Screen Date sepsis recognized/suspect: Jun 17, 2025 Time Sepsis recognized/suspect: 1700 Recent Procedure: No On Antibiotic Therapy: No Respiratory Rate >20: No Heart Rate >90: No Temp<36 C (96.8 F) or >38.3 C: No SBP <90 or MAP <65 mmHG: No New Acute Mental Status Change: No Is the patient on CPAP, BIPAP,: No IV fluid challenge completed?: No Physician Orders Urinalysis (06/17/25 17:09) Drug Screen (06/17/25 17:09) Troponin-I Hs (06/17/25 20:09) Electrocardigram (06/17/25 17:09) Heplock Iv (06/17/25 ) Sodium Chloride 0.9% (06/17/25 18:15) Vital Signs Date Time Temp Pulse Resp B/P (MAP) Pulse Ox O2 Delivery O2 Flow Rate FiO2 06/17/25 20:43 100 16 95 06/17/25 20:43 98.7 100 16 127/76 (93) 95 98.7 06/17/25 18:37 96 06/17/25 16:59 97.6 94 18 147/81 99 97.6 Laboratory Tests Test 06/17/25 17:29 06/17/25 19:29 Lactic Acid Level 2.2 mmol/L (0.4-2.0) *H 1.3 mmol/L (0.4-2.0) White Blood Count 6.0 10^3/uL (4.4-10.8) Medications Medications Dose Ordered Sig/Sarina Route Start Time Stop Time Status Last Admin Dose Admin Sodium Chloride 1,000 ml @ 250 mls/hr Q4H ONCE IV 06/17/25 18:15 06/17/25 22:14 06/17/25 18:50 250 MLS/HR Assessment/Plan Assessment/Plan Intractable right foot pain secondary to Right foot cellulitis with open wound, rule out abscess Peripheral neuropathy Bilateral leg swelling History of Osteomyelitis, left mid foot, with abscess from the left foot and ankle status post amputation 01/2024 MRI 06/13 shows no evidence of osteomyelitis in the right foot, hammertoe deformities, edema in the intrinsic muscles may reflect myositis or denervation. X-ray right foot 06/13 shows There is no evidence of acute fracture or dislocation. Chronic appearing fracture deformity of the base of the 5th metatarsal noted, Soft tissue defect noted laterally adjacent to the chronic fracture deformity of the 5th metatarsal base IV vancomycin and cefepime 06/17 Formula Maker consulted Wound consulted Blood culture/Wound culture pending Received 1 L NS at 250 cc an hour by ER ESR/CRP pending Heart failure reduced ejection [id number] exacerbation Echo 03/02/2024 Moderately dilated left ventricle. severly reduced left vebtricular ejection fraction at 30%, there are wall motion regionalities including the anterior and antrospetal wallls with severe hypokinesia. there is a grdae 1 diastolic dysfunction. Tobacco use disorder Former polysubstance use dependence Counseled regarding cessation for more than 22 minutes Plan discussed with the patient in which all questions have been answered Goals of care discussed for more than 28 minute, full code status Case discussed with Dr. Johnson Plan discussed with: Patient Date of Service: Jun 17, 2025 Billing Provider: ANGEL JOHNSON MD Common Visit Codes: [id number] INP/OBS CARE (HIGH) RON MORA RESIDENT Jun 17, 2025 21:02
[2025-06-17] MEDS ORDERED: VANCOMYCIN PER PHARMACY 0 MG IV SCH (22:00)
[2025-06-17] MEDS: VANCOMYCIN 1GM/250ML IV ONE ×2 (22:15→23:42)
[2025-06-17 22:33] LABS: INR 0.98 (0.9-1.15); Partial Thromboplastin Time 31.9 SEC (24.5-34.5); Prothrombin Time 10.4 sec (9.3-11.8)
--- NOTE | 2025-06-17 22:33 | DVH ---
CHEST RADIOGRAPH Indication: chf Technique: Single frontal view of the chest was obtained Comparison: XY CHEST PORTABLE on DOS: 03/01/24, XY CHEST XRAY 1 VIEW on DOS: 02/20/24, CT CT ANGIO CHEST CONTRAST on DOS: 01/10/24 FINDINGS: Lines and Tubes: None Lungs: No focal consolidation. Pleura: No effusion. No pneumothorax. Cardiomediastinal contours: Unremarkable Bones: No acute osseous abnormality. IMPRESSION: 1. No acute cardiopulmonary disease.
[2025-06-17 23:21] VITALS: BP 138/77; PULSE 77; RESP 18; TEMP 97.9; O2SAT 99
[2025-06-17 23:50] LABS: Magnesium 2.0 mg/dL (1.6-2.6)
[2025-06-18] VITALS (8 sets, daily range): BP systolic 132–142; BP diastolic 76–99; PULSE 67–83; RESP 16–18; TEMP 97.5–98; O2SAT 96–99
[2025-06-18] MEDS: CEFEPIME 2GM/50ML NS 50 ML IV SCH (00:09)
[2025-06-18] MEDS: GABAPENTIN 100 MG CAP PO ONE (02:45)
[2025-06-18] MEDS ORDERED: ACETAMINOPHEN 500 MG TAB or CAP PO PRN (02:45)
[2025-06-18] MEDS ORDERED: MORPHINE SULFATE INJ 2 MG/ml SYRG IV PRN (02:45)
[2025-06-18] MEDS: GABAPENTIN 100 MG CAP PO SCH (05:18)
[2025-06-18 05:19] LABS: Hematocrit 38.1 % (41.0-53.0); Hemoglobin 13.0 g/dL (13.5-17.5); Mean Corpuscular Hemoglobin 27.9 pg (28.0-32.0); Mean Corpuscular Volume 81.5 fL (80.0-100.0); Nucleated Red Blood Cells % 0.1 %
[2025-06-18 05:28] LABS: Alanine Aminotransferase 16 U/L (7-40); Albumin 3.7 g/dL (3.2-4.8); Alkaline Phosphatase 104 U/L (46-116); Anion Gap 6 (5-15); BUN/Creatinine Ratio 15.1 (10.0-20.0); Blood Urea Nitrogen 14 mg/dL (9-23); Carbon Dioxide 26 mmol/L (20-31); Chloride 105 mmol/L (98-107); Glucose 94 mg/dL (74-106); Potassium 3.9 mmol/L (3.5-5.1); Sodium 137 mmol/L (136-145); Total Protein 6.8 g/dL (5.7-8.2)
[2025-06-18 05:39] LABS: Bilirubin, Total 0.2 mg/dL (0.2-1.0); Calcium 8.6 mg/dL (8.7-10.4)
--- NOTE | 2025-06-18 06:37 | ECG ---
[facility] Test Date: 2025-06-17 Test Time: 18:37:29 Pat Name: NEHA SQUIRES Department: ED Room: 0236 A Gender: M Internet Merchant: DAIJA : 1985 Requested By: NEHA OSBORN Order Number: [id number] Reading MD: Justin Mccormick Measurements Intervals [place] Rate: 96 P: 56 [place]: 153 QRS: 49 QRSD: 91 T: -26 QT: 387 QTc: 490 Interpretive Statements Sinus rhythm Nonspecific T abnormalities, inferior leads Borderline prolonged QT interval Baseline wander in lead(s) I Electronically Signed On 06-19-2025 19:17:08 PDT by Justin Mccormick Please click the below link to view image of tracing.
--- NOTE | 2025-06-18 09:43 | DVH ---
EXAM: XY R FOOT 2 VIEW XRAY CLINICAL INDICATION: r ft wound TECHNIQUE: XY R FOOT 2 VIEW XRAY Comparison: MRI MRI R FOOT WO CONTRAST on DOS: 06/13/25, XY R FOOT 3 VIEW XRAY on DOS: 06/13/25, XY L F OOT 2 VIEW XRAY on DOS: 02/24/24, XY L FOOT 3 VIEW XRAY on DOS: 02/21/24, XY R FOOT 3 VIEW XRAY on DOS: 02/21/24 FINDINGS/IMPRESSION: There is no evidence of acute fracture or dislocation. Old healed fracture 5th metatarsal again noted. The visualized joint space is well maintained. The alignment is anatomical. There is no radiopaque foreign body.
[2025-06-18] MEDS: ENOXAPARIN SOD 40 MG/0.4 ML SYRINGE SC SCH (10:00)
[2025-06-18] MEDS: LISINOPRIL 5 MG TAB PO SCH (10:00)
--- NOTE | 2025-06-18 12:44 | DVH ---
BILATERAL Lower Extremity Arterial Duplex Date: 06/18/2025 11:14 AM Clinical History: weak pulses Comparison: US BILAT LOW EXT ART DUPLEX on DOS: 01/10/24 Technique: Duplex Doppler evaluation including color Doppler and spectral/pulsed waveform analysis of the lower extremity arteries was performed. Finding: RIGHT: Peak systolic velocities are as follows: PIN DRAFTING MACHINE TENDER 149 cm/s Deep femoral 69 cm/s SFA proximal 130 cm/s SFA mid-portion 142 cm/s SFA distal 122 cm/s Popliteal 88 cm/s Posterior tibial 110 cm/s Dorsalis pedis 90 cm/s The waveforms are triphasic. LEFT: Peak systolic velocities are as follows: PIN DRAFTING MACHINE TENDER 136 cm/s Deep femoral 63 cm/s SFA proximal 116 cm/s SFA mid-portion 129 cm/s SFA distal 111 cm/s Popliteal 104 cm/s Posterior tibial 46 cm/s Dorsalis pedis 25 cm/s The waveforms are triphasic except for monophasic at the dorsal pedis. REFERENCE VALUES, [facility]) vascular Imaging Lab Criteria: Peak systolic velocity ranges (in cm/sec) are as follows: <150 cm/s - <20 % stenosis 150-200 cm/s - 20-49% stenosis 200-300 cm/s - 50-75% stenosis >300 cm/s -> 75% stenosis IMPRESSION: 1. There is no evidence for peripheral vascular insufficiency in the right lower extremity. 2. Reduced velocity and monophasic flow within the left dorsalis pedis; otherwise no evidence for per ipheral vascular insufficiency in the remaining left lower extremity arterial vasculature.
--- NOTE | 2025-06-18 12:45 | DVHPN2 ---
Subjective NO COMPLAINTS Changes from previous H/P or p: No Changes Objective Vitals Vital Signs Date Time Temp Pulse Resp B/P (MAP) Pulse Ox O2 Delivery O2 Flow Rate FiO2 06/18/25 09:00 97.7 69 16 140/99 (113) 98 97.7 06/17/25 23:21 Room Air* 0 21 Intake/Output Intake and Output 06/18/25 07:00 Intake Total 490 ml Balance 490 ml Intake Oral 240 ml IV Total 250 ml # Voids 2 General Appearance: Alert, Oriented X3, Cooperative, No acute distress Lungs: Clear to auscultation Cardiovascular: Regular rate, Normal S1, Normal S2 Abdomen: Normal bowel sounds, Soft, No tenderness, No hepatospenomegaly Musculoskeletal: Normal sensory function, Normal motor function Extremities: No edema, Normal pulses, Other (S/P LT TMT AMPUTATION) Neuro: Normal gait, Normal speech, Strength at 5/5 X4 ext, Normal tone, S ensation intact, Cranial nerves 3-12 NL Psych/Mental Status: Mental status NL, Mood NL Medications Current Medications Medications Dose Ordered Sig/Sarina Route Start Time Stop Time Status Last Admin Dose Admin Vancomycin HCl 0 ml @ 0 mls/hr UD IV 06/17/25 22:00 Cefepime HCl 50 ml @ 12.5 mls/hr Q8HR IV 06/17/25 22:00 06/18/25 05:17 12.5 MLS/HR Enoxaparin Sodium 40 mg DAILY SC 06/18/25 10:00 Acetaminophen 500 mg Q4HPRN PRN PO 06/18/25 02:45 Acetaminophen/ Hydrocodone Bitart 1 tab Q6HPRN PRN PO 06/18/25 02:45 Morphine Sulfate 1 mg Q4HPRN PRN IV 06/18/25 02:45 Gabapentin 100 mg TID PO 06/18/25 06:00 Lisinopril 5 mg DAILY PO 06/18/25 10:00 Vancomycin HCl 250 ml @ 166.667 mls/hr Q12H IV 06/18/25 11:00 Laboratory Results Laboratory Tests 06/18/25 04:49 Chemistry Test 06/17/25 17:29 06/18/25 04:49 Albumin 4.3 g/dL (3.2-4.8) 3.7 g/dL (3.2-4.8) Calcium Level 9.3 mg/dL (8.7-10.4) 8.6 mg/dL (8.7-10.4) L Magnesium Level 2.0 mg/dL (1.6-2.6) Total Protein 7.8 g/dL (5.7-8.2) 6.8 g/dL (5.7-8.2) Coagulation Test 06/17/25 17:29 Prothrombin Time 10.4 sec (9.3-11.8) Prothrombin Time INR 0.98 (0.9-1.15) Activated Partial Thromboplast Time 31.9 SEC (24.5-34.5) Lipid panel Test 06/17/25 17:29 Lipase 33 U/L (12-53) Cardiac Markers Test 06/17/25 17:29 B-Type Natriuretic Peptide 52.64 pg/mL (0-100) LFT Test 06/17/25 17:29 06/18/25 04:49 Alanine Aminotransferase (ALT) 18 U/L (7-40) 16 U/L (7-40) Alkaline Phosphatase 117 U/L (46-116) H 104 U/L (46-116) Aspartate Amino Transferase (AST) 23 U/L (13-40) 19 U/L (13-40) Total Bilirubin 0.2 mg/dL (0.2-1.0) 0.2 mg/dL (0.2-1.0) HgA1c, TSH Test 06/17/25 17:29 Hemoglobin A1c 5.5 % A1C (<5.7) Thyroid Stimulating Hormone (TSH) 0.96 uIU/mL (0.55-4.78) Assessment/Plan Assessment/Plan cellulitis/infected callous right lateral border/on iv antibiotics/.podiatry consulted/arterial doppler pending- peripheral pulse well felt h/o lt tmt amputation tobacco abuse h/o met abuse per pt not used for year Plan discussed with: Patient, Other Date of Service: Jun 18, 2025 Billing Provider: SOLO PADILLA MD Common Visit Codes: [id number] INP/OBS CARE(MOD) SOLO PADILLA MD Jun 18, 2025 12:45
[2025-06-18] MEDS: VANCOMYCIN 1.5GM/250ML 250 ML IV SCH (17:00)
[2025-06-18] MEDS: HYDROcodone-ACET 5/325MG TAB PO PRN (23:46)
[2025-06-19 01:00] VITALS: BP 124/78; PULSE 79; RESP 18; TEMP 98.2; O2SAT 98
[2025-06-19 05:00] VITALS: BP 114/69; PULSE 80; RESP 18; TEMP 98.3; O2SAT 97
[2025-06-19 08:00] VITALS: PULSE 69; RESP 18; O2SAT 98
--- NOTE | 2025-06-19 11:07 | DVHCONRES ---
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 He reports that he was putting more pressure on the right foot for the past year post amputation and it started with a bulge on the right side of the foot, later a blister repaired with popped open and purulent drainage was seen. Patient had no means to come to the ER apparently per patient. He denies fever or chills, nausea or vomiting, chest pain or shortness of breaths at this time. Past Medical History See H&P Past Surgical History See H&P Family History: Patient reports no known family medical history. Allergies: Coded Allergies: Chicken Allergy (Verified Allergy, Intermediate, 01/10/24) Tuna Flavoring Agent (non-screening (Verified Allergy, Unknown, 03/08/24) Home Meds No Active Prescriptions or Reported Meds Vital Signs Vital Signs Date Time Temp Pulse Resp B/P (MAP) Pulse Ox O2 Delivery O2 Flow Rate FiO2 06/19/25 10:39 114/69 06/19/25 08:00 69 18 98 Room Air* 0 21 06/19/25 05:00 98.3 98.3 Physical Exam Dermatological: Skin is dry with mild erythema and some maceration around the wound site No gross deformities noted Mild non-pitting edema present bilaterally Wound: Location: Right lateral foot Measures: 1.2 cm in length, 1 cm in width, and 0.5 cm in depth. Depth: Full thickness Base: Mix of granulation/slough Drainage: None Odor: None Periwound: Intact surrounding cellulitis Vascular: Dorsalis pedis and posterior tibial pulses are 1+ bilaterally Capillary refill is under 2 seconds Skin temperature is warm bilaterally Neurologic: Protective sensation is absent on the plantar forefoot bilaterally Monofilament testing reveals decreased sensation in multiple plantar sites Musculoskeletal: Range of motion at the ankle and MTP joints is within normal limits. Strength is 5/5 in all tested muscle groups. Gait is antalgic due to offloading of the affected limb. Labs/Diagnostic Data Labs Test 06/18/25 04:49 06/17/25 20:34 06/17/25 19:29 06/17/25 17:29 Range/Units White Blood Count 4.7 4.4-10.8 10^3/uL Red Blood Count 4.68 4.5-5.90 10^6/uL Hemoglobin 13.0 L 13.5-17.5 g/dL Hematocrit 38.1 #L 41.0-53.0 % Mean Corpuscular Volume 81.5 80.0-100.0 fL Mean Corpuscular Hemoglobin 27.9 L 28.0-32.0 pg Mean Corpuscular Hemoglobin Concent 34.2 32.0-36.0 g/dL Red Cell Distribution Width 13.4 11.8-14.3 % Platelet Count 249 140-450 10^3/uL Mean Platelet Volume 6.9 6.9-10.8 fL Neutrophils (%) (Auto) 50.1 37.0-80.0 % Lymphocytes (%) (Auto) 34.6 10.0-50.0 % Monocytes (%) (Auto) 12.1 H 0.0-12.0 % Eosinophils (%) (Auto) 2.6 0.0-7.0 % Basophils (%) (Auto) 0.6 0.0-2.0 % Neutrophils # (Auto) 2.3 1.6-8.6 10 ^3/uL Lymphocytes # (Auto) 1.6 0.4-5.4 10 ^3/uL Monocytes # (Auto) 0.6 0-1.3 10 ^3/uL Eosinophils # (Auto) 0.1 0-0.8 10 ^3/uL Basophils # (Auto) 0 0-0.2 10 ^3/uL Nucleated Red Blood Cells 0.1 % Sodium Level 137 136-145 mmol/L Potassium Level 3.9 3.5-5.1 mmol/L Chloride Level 105 98-107 mmol/L Carbon Dioxide Level 26 20-31 mmol/L Anion Gap 6 5-15 Blood Urea Nitrogen 14 9-23 mg/dL Creatinine 0.93 0.700-1.30 mg/dL Glomerular Filtration Rate Calc 106 >90 mL/min BUN/Creatinine Ratio 15.1 10.0-20.0 Serum Glucose 94 74-106 mg/dL Calcium Level 8.6 L 8.7-10.4 mg/dL Total Bilirubin 0.2 0.2-1.0 mg/dL Aspartate Amino Transferase (AST) 19 13-40 U/L Alanine Aminotransferase (ALT) 16 7-40 U/L Alkaline Phosphatase 104 46-116 U/L Total Protein 6.8 5.7-8.2 g/dL Albumin 3.7 3.2-4.8 g/dL Troponin I High Sensitivity 4 </=54 ng/L Lactic Acid Level 1.3 0.4-2.0 mmol/L Erythrocyte Sedimentation Rate 14 0-20 mm/hr Prothrombin Time 10.4 9.3-11.8 sec Prothrombin Time INR 0.98 0.9-1.15 Activated Partial Thromboplast Time 31.9 24.5-34.5 SEC Hemoglobin A1c 5.5 <5.7 % A1C Magnesium Level 2.0 1.6-2.6 mg/dL C-Reactive Protein High Sensitivity 0.62 <1.0 mg/dL B-Type Natriuretic Peptide 52.64 0-100 pg/mL Lipase 33 12-53 U/L Vitamin B12 Level 387 211-911 pg/mL Thyroid Stimulating Hormone (TSH) 0.96 0.55-4.78 uIU/mL Microbiology Date/Time Source Procedure Growth Status 06/18/25 00:14 Nose MRSA Screen - Final Complete Problems(with codes): (1) Acute bronchitis (2) Strain of muscle of torso (3) Hyponatremia (4) Leukocytosis, unspecified (5) Elevated d-dimer (6) Foot osteomyelitis, left (7) Left foot pain (8) Cellulitis of left foot (9) Chronic ulcer of left foot (10) Foot fracture, right (11) Foot abscess, right (12) Cellulitis of right foot Plan/Recommendation ASSESSMENT: Patient is a 39 year old seen on the floor for a worsening ulcer PLAN: - The patients chart was reviewed, clinical findings were discussed with the patient, the etiologies of the conditions were discussed in detail, and a treatment plan was agreed to at this time, with both oral and written instructions provided. - recommend no MRI at this point - patient needs 2 weeks of outpatient p.o. antibiotics - patient needs wound care - discharge home with appointment 1 week after DC All questions were answered and concerns addressed to the patient's satisfaction. The patient was given the phone number to the clinic and was told how to make contact with the clinic should any concerns or questions arise. Patient understands that if any questions or concerns arise prior to the next appointment, we should be contacted immediately. FOLLOW-UP: Continue to follow while inpatient Plan discussed with: Patient Visit Coding Podiatry Date of Service if different f: Jun 19, 2025 Billing Provider: JENNIFER WADE DPM Podiatry Common Visit Codes: CONSULT ONLY Podiatry Consult Codes: 79350-PR/OBS CONSLTJ NEW/EST HI 80 JENNIFER WADE DPM Jun 19, 2025 11:07
[2025-06-19 12:15] LABS: Hematocrit 44.7 % (41.0-53.0); Hemoglobin 14.6 g/dL (13.5-17.5); Mean Corpuscular Hemoglobin 27.5 pg (28.0-32.0); Mean Corpuscular Volume 84.2 fL (80.0-100.0); Nucleated Red Blood Cells % 0.4 %
[2025-06-19 12:50] VITALS: BP 115/69; PULSE 74; RESP 16; TEMP 97.5; O2SAT 97
[2025-06-19] MEDS: VANCOMYCIN 1.5GM/250ML 250 ML IV SCH (14:00)
[2025-06-19] MEDS ORDERED: AUG875T PO (14:46)
[2025-06-19] MEDS ORDERED: GABA300T4 PO (14:46)
[2025-06-19] MEDS ORDERED: LISI10TA34 PO (14:46)
--- NOTE | 2025-06-19 16:33 | DVHDS2 ---
Discharge Summary Date of Admission Jun 17, 2025 at 21:01 Date of Discharge: Jun 19, 2025 Labs/Diagnostic Data: Laboratory Results Test 06/19/25 11:40 06/18/25 04:49 06/17/25 20:34 06/17/25 19:29 White Blood Count 6.2 10^3/uL (4.4-10.8) Red Blood Count 5.31 10^6/uL (4.5-5.90) Hemoglobin 14.6 g/dL (13.5-17.5) Hematocrit 44.7 % (41.0-53.0) Mean Corpuscular Volume 84.2 fL (80.0-100.0) Mean Corpuscular Hemoglobin 27.5 pg (28.0-32.0) Mean Corpuscular Hemoglobin Concent 32.6 g/dL (32.0-36.0) Red Cell Distribution Width 13.5 % (11.8-14.3) Platelet Count 195 10^3/uL (140-450) Mean Platelet Volume 8.4 fL (6.9-10.8) Neutrophils (%) (Auto) 69.7 % (37.0-80.0) Lymphocytes (%) (Auto) 19.5 % (10.0-50.0) Monocytes (%) (Auto) 9.1 % (0.0-12.0) Eosinophils (%) (Auto) 1.2 % (0.0-7.0) Basophils (%) (Auto) 0.5 % (0.0-2.0) Neutrophils # (Auto) 4.3 10 ^3/uL (1.6-8.6) Lymphocytes # (Auto) 1.2 10 ^3/uL (0.4-5.4) Monocytes # (Auto) 0.6 10 ^3/uL (0-1.3) Eosinophils # (Auto) 0.1 10 ^3/uL (0-0.8) Basophils # (Auto) 0 10 ^3/uL (0-0.2) Nucleated Red Blood Cells 0.4 % Creatinine 0.94 mg/dL (0.700-1.30) Glomerular Filtration Rate Calc 105 mL/min (>90) Vancomycin Level Trough 12.0 ug/mL (5-10) Sodium Level 137 mmol/L (136-145) Potassium Level 3.9 mmol/L (3.5-5.1) Chloride Level 105 mmol/L (98-107) Carbon Dioxide Level 26 mmol/L (20-31) Anion Gap 6 (5-15) Blood Urea Nitrogen 14 mg/dL (9-23) BUN/Creatinine Ratio 15.1 (10.0-20.0) Serum Glucose 94 mg/dL (74-106) Calcium Level 8.6 mg/dL (8.7-10.4) Total Bilirubin 0.2 mg/dL (0.2-1.0) Aspartate Amino Transferase (AST) 19 U/L (13-40) Alanine Aminotransferase (ALT) 16 U/L (7-40) Alkaline Phosphatase 104 U/L (46-116) Total Protein 6.8 g/dL (5.7-8.2) Albumin 3.7 g/dL (3.2-4.8) Troponin I High Sensitivity 4 ng/L (</=54) Lactic Acid Level 1.3 mmol/L (0.4-2.0) Test 06/17/25 17:29 Erythrocyte Sedimentation Rate 14 mm/hr (0-20) Prothrombin Time 10.4 sec (9.3-11.8) Prothrombin Time INR 0.98 (0.9-1.15) Activated Partial Thromboplast Time 31.9 SEC (24.5-34.5) Hemoglobin A1c 5.5 % A1C (<5.7) Magnesium Level 2.0 mg/dL (1.6-2.6) C-Reactive Protein High Sensitivity 0.62 mg/dL (<1.0) B-Type Natriuretic Peptide 52.64 pg/mL (0-100) Lipase 33 U/L (12-53) Vitamin B12 Level 387 pg/mL (211-911) Vitamin D 25-Hydroxy 49.3 ng/mL (30.0-100) Thyroid Stimulating Hormone (TSH) 0.96 uIU/mL (0.55-4.78) Other Laboratory Tests 06/19/25 11:40 06/18/25 04:49 Brief Hx & Hospital Course: This is a 39-year-old male with peripheral neuropathy, 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 He reports that he was putting more pressure on the right foot for the past year post amputation and it started with a bulge on the right side of the foot, later a blister repaired with popped open and purulent drainage was seen. Patient had no means to come to the ER apparently per patient. He denies fever or chills, nausea or vomiting, chest pain or shortness of breaths at this time.seen by podiatri, cleared for oral abx. stable to dc. Condition at Discharge: Good Final Diagnosis/Problems List celulitis with ulcer s/p lft tmt amputation smoker hx meth Discharge Disposition: Home Discharge Instruct/Medications Diet: Consistent carbohydrate, Cardiac 2g Na,low cholest Activity: No Restrictions, As Tolerated Follow Up/Referral: pcp podiatry dc clinic Scheduled Amoxicillin & Pot Clavulanate (Augmentin Tablet), 875 MG PO BID Gabapentin (Once-Daily) (Gabapentin), 100 MG PO TID Lisinopril (Lisinopril), 10 MG PO DAILY Discharge Statement: "Patient was advised to return to the ER or call 911 if any headaches, dizziness, shortness of breath, chest pain, abdominal pain, bleeding, fevers, or worsening of medical condition. Patient was counseled about treatment plan, medications, possible side effects, patientverbalized understanding. All questions were answered to the best of my ability. This discharge took greater then 30 minutes in planning, reviewing documentation, counseling the patient, and discussing with other team members." ASSESSMENT ASSESSMENT Assessment celulitis with ulcer s/p lft tmt amputation smoker hx meth Date of Service: Jun 19, 2025 Billing Provider: JESSICA DSOUZA MD Common Visit Codes: 65700-WVF/OBS DISCH DAY >30min JESSICA DSOUZA MD Jun 19, 2025 16:33
[2025-06-19 16:48] LABS: Hepatitis B Surface Antigen Negative (Negative)
[2025-06-19 17:00] VITALS: BP 108/62; PULSE 81; RESP 18; TEMP 97.5; O2SAT 98
[2025-06-19 17:13] LABS: Hepatitis C Antibody Negative (Negative)
== END 2025-06-19 17:22 | disposition home or self-care (01) | DRG 603 ==
LOC: ER 16:57 → OVERFLOW 21:01 → EAST 22:47
PROVIDERS: ADMIT Student in an Organized Health Care Education/Training Program; ATTEND Student in an Organized Health Care Education/Training Program
DX: L03.115 Cellulitis of right lower limb (principal); I50.9 Heart failure, unspecified; G62.9 Polyneuropathy, unspecified; E66.01 Morbid (severe) obesity due to excess calories; F17.210 Nicotine dependence, cigarettes, uncomplicated; S91.301A Unspecified open wound, right foot, initial encounter; L97.529 Non-pressure chronic ulcer of other part of left foot with unspecified severity; Z79.899 Other long term (current) drug therapy; Z91.018 Allergy to other foods; Z89.432 Acquired absence of left foot; X58.XXXA Exposure to other specified factors, initial encounter; Y93.89 Activity, other specified; Y92.89 Other specified places as the place of occurrence of the external cause; Y99.8 Other external cause status; Z68.32 Body mass index [BMI] 32.0-32.9, adult
CPT/HCPCS: 36415; 71045; 73620; 80053; 80202; 82306; 82565; 82607; 83036; 83605; 83690; 83735; 83880; 84443; 84484; 85025; 85610; 85652; 85730; 86141; 86803; 87081; 87340; 93005; 93925; 96361; 96365; G0378; J0692